=== PATIENT | female | born 1950 | race Caucasian/White ===

== ENCOUNTER 2023-02-26 13:15 | Outpatient (RCR) | payer MEDICARE, OTHER, SELFPAY ==
--- NOTE | 2022-12-22 16:38 | PT.OIE ---
Current Diagnoses Rectocele (12/22/22) Visit Care Team Role Provider Type Other Providers Specialty: Address: Phone: Fax: Email: Rasheeda Segura MD Family Provider Physician Primary Care Provider Specialty: Family Practice Address: [address] [place] [address], [address], [place], [address] Email: Aiden Myers MD Attending Provider Non-Staff Referring Provider Specialty: TAPE WEAVER Address: [address] [place] [address], [address], [place], [address] Email: Physical Therapy Initial Evaluation PT-OP-A Visit Information Start: 12/15/22 18:47 Freq: Status: Active Protocol: Document 12/22/22 13:23 LRN (Rec: 12/22/22 15:01 LRN [id number]) Out-Patient Physical Therapy Visit Information Visit Information Visit Type Initial Evaluation Visit Start Time 13:23 Visit Stop Time 14:29 Total Visit Minutes 66 Visit Number 1 Evaluation Information Evaluation Date 12/22/22 Precautions Precautions PMH per pt and intake form: Bartholin Gland removed-scar tissue, ovariectomy, Skull fracture - age 2. PT-OP-B Current Condition Start: 12/15/22 18:47 Freq: Status: Active Protocol: Document 12/22/22 13:23 LRN (Rec: 12/22/22 15:01 LRN [id number]) Current Condition History of Current Condition Onset Date 3-4 yrs ago History of Current Condition Pt reports having 1981 had 4 deg perineal tear, with forceps used during first preganancey. 2nd chld was delivered standing up. 3-4 yrs ago started to feel a bulge in perineum and discovered herniated rectocele . Moved to [facility] 2.5 [address] Segura and was given options of care. Pt finally went in to get option because could feel prolapse with walking. Saw Dr Janet Myers and was given option of pessary, PT or surgery. She started PT with Lena Brady, PT and was given Kegel ex's, breathing, not lifting, body work, and education for 5 session. Pt choosing to continue therapy at due to other PT is not under her insurance. Pt wants to see what other kinds of therapy is available. Future Testing and Treatments Planned January 04, 2023 Teleconference with surgeon through Medicine, to schedule an appt to look at kidney, ureter, and bladder. Developmental History Developmental History Childbirths 1980, and 1982. Vaginal deliveries, 1st delivery 4th deg perineal tear , with forceps used. Cyst on ovary with 2nd child and 2 months after bifth had R ovarianectomy. Pt reports she was very active after having her children. Treatment Goals Patient/Caregiver Goals Pt wants to improve as much as she can through education and learning of what she can so she is can avoid surgery. Strengthen the PF muscles and alleviate the pressure on her herniated rectocele. Educated on a HEP. 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 Current Functional Impairments (Reported) Functional Limitations- Recreation/ Intermediate and advanced Hobbies Pilates 2x/week. Has grandchildren that she was lifting. New grandchild coming. Personal Factors Other Personal Factors That May Effect Pt lives on [place] and is Therapy/Recovery expecting a new grandchild end of Jun 2023. PT-OP-C Subjective Start: 12/15/22 18:47 Freq: Status: Active Protocol: Document 12/22/22 13:23 LRN (Rec: 12/22/22 15:01 LRN [id number]) Patient Questionnaires Pelvic Floor Distress Inventory Questionnaire (PFDI- SF20) Pelvic Floor Score Pt failed to return questionnaire back in. PT-OP-I Pelvic Floor Start: 12/15/22 18:47 Freq: Status: Active Protocol: Document 12/22/22 13:23 LRN (Rec: 12/22/22 15:01 LRN [id number]) Pelvic Floor Assessment Bowel Other Bowel Symptoms Flatulence. Pelvic Clock Pelvic Clock 12-3 Atrophy Pelvic Clock 3-6 Atrophy Pelvic Clock 6-9 Atrophy Pelvic Clock 9-12 Atrophy Prolapse Urethrocele Grade 2 Rectocele Grade 2 Prolapse Comments Uterine Prolapse, able to palpate end of uterus at 2nd knuckle depth. Perineal Descent Resting Absent Bearing Present Contraction Ability Voluntary Contraction Weak Manual Muscle Testing Left 0 Manual Muscle Testing Right 0 Manual Muscle Testing Anterior 1 Manual Muscle Testing Posterior 3 Muscle Endurance (Seconds) 6 Number of Quick Contractions In 10 1 Seconds Comments Pelvic Floor Comments Pt has mild redness at vaginal entry of PF clock 5-7. PT-OP-J Posture/Palpation/Skin Start: 12/15/22 18:47 Freq: Status: Active Protocol: Document 12/22/22 13:23 LRN (Rec: 12/22/22 15:01 LRN [id number]) Posture Evaluation Position Standing T-Spine Posture Neutral L-Spine Posture Neutral Shoulder Posture (L) Elevated Scapula Posture (L) Neutral,(R) Neutral,(L) Winged,(R) Winged Arm Posture (L) Internally Rotated,(R) Internally Rotated Pelvis Posture Anteriorly Tilted,(R) Iliac Crest Superior Comments Posture Comments Mild anterior tilt of pelvis. Mild>moderate C-curve of upper thoracic spine with apex on the Left. PT-OP-K Range of Motion Start: 12/15/22 18:47 Freq: Status: Active Protocol: Document 12/22/22 13:23 LRN (Rec: 12/22/22 15:01 LRN [id number]) Lumbar Spine Range of Motion Lumbar Spine Active Degrees Testing Position Standing Flexion 10 Extension 15 Rotation Left 45 Rotation Right 40 Lateral Flexion Left 5 Lateral Flexion Right 10 Comments Flexion is 100 deg?s with 90 deg?s hip flexion, Trunk extension is 15 deg?s with 10 deg?s hip extension. Hip Goniometric Range of Motion Hip Right Passive Testing Position Supine Internal Rotation 35 External Rotation 60 Left Passive Testing Position Supine Internal Rotation 40 External Rotation 55 PT-OP-M Strength Start: 12/15/22 18:47 Freq: Status: Active Protocol: Document 12/22/22 13:23 LRN (Rec: 12/22/22 15:01 LRN [id number]) Trunk Strength Trunk Manual Muscle Testing Core Stabilization Pt shows good core stability with all LE movements. Hip Strength Hip Manual Muscle Testing Right Comments Generally 5/5 except as indeicated above Left External Rotation 3 Fair Comments Generally 5/5 except as indeicated above PT-OP-Q Treatments Start: 12/15/22 18:47 Freq: Status: Active Protocol: Document 12/22/22 13:23 LRN (Rec: 12/22/22 15:01 LRN [id number]) Therapeutic Exercises Supine Exercises PF Long Holds Supine Exercise Name PF Long holds Reps/Minutes 3' PF Quick Flicks Supine Exercise Name PF Quick Flicks Reps/Minutes 3' Self-Care/Home Management Treatment Education Patient Education Home Exercise Program Other Education Discussed results of evaluation, and discussed goals and prior therapy treaments, and plan of care ( POC). Pt agreeable to goals and POC. Pt educated in use of Bladder Diary and I/S in tracking for 1 week. Discussed use of 2 different diaries for tracking of bladder. Discussed previous ex's to include Kegels and putting yoga wedge between legs to correct flexion at hips and to improve prolapse positioning. Activities Self-Care/Home Management Activities I/S and reviewed Issued & reviewed HEP: Kegel ex's and discussed exercise of Quick Flicks, Long Holds and Aggravators. PT-OP-T Assessment and Plan Start: 12/15/22 18:47 Freq: Status: Active Protocol: Document 12/22/22 13:23 LRN (Rec: 12/22/22 15:01 LRN [id number]) Physical Therapy Assessment Rehab Potential Rehabilitation Potential Good Evaluation Complexity Number of Personal Factors/Comorbidities 1-2 Number of Body Systems Impaired 3 Clinical Presentation at Evaluation Evolving Impairments Impairments Posture,ROM,Strength Goals Three Impairment Pt uses substitute muscles to perform a PF contraction Short Term Goal (STG) Pt will be aware of the sensation of a proper PF contraction STG Duration 02/05/23 Senior Care Goal (LTG) Pt will be able to perform a PF contraction in isolation of substitute muscles (gluteals, hip AD's and TA). LTG Duration 03/22/23 Two Impairment Decreased Pelvic Floor/TA strength. Short Term Goal (STG) Pt will demonstrate proper core pressure management with PF/TA strengthening. STG Duration 02/05/23 Senior Care Goal (LTG) Improve PF strength so that pt can contract the PF for 10 secs prior to fatigue and be able to avoid PF surgery. LTG Duration 03/22/23 One Impairment Lacks appropriates self care HEP. Short Term Goal (STG) Pt educated in proper transfers to lessen core abdominal pressure. STG Duration 02/05/23 Manager Document Goal (LTG) Pt will be independent in a self care HEP for PF strengthening. LTG Duration 03/22/23 Assessment Summary Assessment Pt is a 72 yo female with grade 2 rectocele and uterocele grade 2, and appears to have a drop in her uterus with palpation at 2nd knuckle depth. She has weakness of her PF, worse anteriorly and lateral méndez. She has good core strength, but weakness of the L hip with ER, her hip ER mobility is decreased (L worse than R) and IR is R worse than L. She appears to have had good pt education in proper breathwork and coordination with daily activities and exercise, but review will be needed. The pt will benefit from skilled physical therapy for EMG biofeedback PF strengthening and PF contraction awareness education/exercise and PF strengthening to work towards achieving the above stated goals. Physical Therapy Plan Frequency and Duration Frequency of Treatment 1x/Week Plan of Care Start Date 12/22/22 Plan of Care End Date 03/22/23 Therapeutic Interventions Therapeutic Interventions Home Exercise Program,Manual Therapy,Neuromuscular Re- education,Patient/Caregiver Education,Self-Care/Home Management,Soft Tissue Mobilization,Therapeutic Activities,Therapeutic Exercises Modalities Biofeedback,Cold Pack/Ice Massage,Electric Stimulation, Hot Packs Next Visit Focus/Plan Next Note Type Treatment Note Next Visit Plan Pt to submit PFDI-SF20. Review bladder diary and discuss fluid management, discuss stool types, food types, and water intake, assess rectocele (PF section). PF assessment per VEMG, Estim for PF contraction awareness training. Pt education and training in proper Kegel without use of substitute muscles. Pt education: in vulvar/ genital care, proper deep breathing, and proper breathing with transfer for proper core pressure management, and body mechanics . EX: PF/core/hip strengthening , improve hip mobility, Manual: improve abdominal soft tissue (bladder) mobility .
--- NOTE | 2022-12-22 16:38 | PT.OPPOC ---
Physical, Occupational & Speech Therapy At [facility] Current Diagnoses Rectocele (12/22/22) Visit Care Team Role Provider Type Other Providers Specialty: Address: Phone: Fax: Email: Rasheeda Segura MD Family Provider Physician Primary Care Provider Specialty: Family Practice Address: [address] [place] [address], [address], [address] Email: Aiden Myers MD Attending Provider Non-Staff Referring Provider Specialty: PAPER SALES MANAGER Address: [address] [place] [address], [address], [place], [address] Email: Plan Of Care PT-OP-T Assessment and Plan Start: 12/15/22 18:47 Freq: Status: Active Protocol: Document 12/22/22 13:23 LRN (Rec: 12/22/22 15:01 LRN [id number]) Physical Therapy Assessment Rehab Potential Rehabilitation Potential Good Evaluation Complexity Number of Personal Factors/Comorbidities 1-2 Number of Body Systems Impaired 3 Clinical Presentation at Evaluation Evolving Impairments Impairments Posture,ROM,Strength Goals Three Impairment Pt uses substitute muscles to perform a PF contraction Short Term Goal (STG) Pt will be aware of the sensation of a proper PF contraction STG Duration 02/05/23 Chainstitch Tunnel Elastic Operator Goal (LTG) Pt will be able to perform a PF contraction in isolation of substitute muscles (gluteals, hip AD's and TA). LTG Duration 03/22/23 Two Impairment Decreased Pelvic Floor/TA strength. Short Term Goal (STG) Pt will demonstrate proper core pressure management with PF/TA strengthening. STG Duration 02/05/23 Chainstitch Tunnel Elastic Operator Goal (LTG) Improve PF strength so that pt can contract the PF for 10 secs prior to fatigue and be able to avoid PF surgery. LTG Duration 03/22/23 One Impairment Lacks appropriates self care HEP. Short Term Goal (STG) Pt educated in proper transfers to lessen core abdominal pressure. STG Duration 02/05/23 Chainstitch Tunnel Elastic Operator Goal (LTG) Pt will be independent in a self care HEP for PF strengthening. LTG Duration 03/22/23 Assessment Summary Assessment Pt is a 72 yo female with grade 2 rectocele and uterocele grade 2, and appears to have a drop in her uterus with palpation at 2nd knuckle depth. She has weakness of her PF, worse anteriorly and lateral méndez. She has good core strength, but weakness of the L hip with ER, her hip ER mobility is decreased (L worse than R) and IR is R worse than L. She appears to have had good pt education in proper breathwork and coordination with daily activities and exercise, but review will be needed. The pt will benefit from skilled physical therapy for EMG biofeedback PF strengthening and PF contraction awareness education/exercise and PF strengthening to work towards achieving the above stated goals. Physical Therapy Plan Frequency and Duration Frequency of Treatment 1x/Week Plan of Care Start Date 12/22/22 Plan of Care End Date 03/22/23 Therapeutic Interventions Therapeutic Interventions Home Exercise Program,Manual Therapy,Neuromuscular Re- education,Patient/Caregiver Education,Self-Care/Home Management,Soft Tissue Mobilization,Therapeutic Activities,Therapeutic Exercises Modalities Biofeedback,Cold Pack/Ice Massage,Electric Stimulation, Hot Packs Next Visit Focus/Plan Next Note Type Treatment Note Next Visit Plan Pt to submit PFDI-SF20. Review bladder diary and discuss fluid management, discuss stool types, food types, and water intake, assess rectocele (PF section). PF assessment per VEMG, Estim for PF contraction awareness training. Pt education and training in proper Kegel without use of substitute muscles. Pt education: in vulvar/ genital care, proper deep breathing, and proper breathing with transfer for proper core pressure management, and body mechanics . EX: PF/core/hip strengthening , improve hip mobility, Manual: improve abdominal soft tissue (bladder) mobility . Plan of Care Dates Plan of Care Start Date 12/22/22 Plan of Care End Date 03/22/23 Electronically Signed by: Marsha Ortiz, PT 12/22/22 5558 If you are in agreement with this Plan of Care, please return a signed and dated copy. I have reviewed this Plan of Care and certify that the skilled therapy services above are required to meet the patient?s needs. Physician Signature Date Printed Name and Credentials Clinical Instructor Signature Printed Name and Credentials
--- NOTE | 2022-12-29 17:26 | PT.OTN ---
Current Diagnoses Rectocele (12/29/22) Physical Therapy Treatment Note PT-OP-A Visit Information Start: 12/15/22 18:47 Freq: Status: Active Protocol: Document 12/29/22 11:21 LRN (Rec: 12/29/22 12:09 LRN [id number]) Out-Patient Physical Therapy Visit Information Visit Information Visit Type Treatment Note Visit Start Time 11:21 Visit Stop Time 12:01 Total Visit Minutes 40 Visit Number 2 Evaluation Information Evaluation Date 12/22/22 Precautions Precautions PMH per pt and intake form: Bartholin Gland removed-scar tissue, ovariectomy, Skull fracture - age 2. PT-OP-B Current Condition Start: 12/15/22 18:47 Freq: Status: Active Protocol: Document 12/22/22 13:23 LRN (Rec: 12/22/22 15:01 LRN [id number]) Current Condition History of Current Condition Onset Date 3-4 yrs ago History of Current Condition Pt reports having 1981 had 4 deg perineal tear, with forceps used during first preganancey. 2nd chld was delivered standing up. 3-4 yrs ago started to feel a bulge in perineum and discovered herniated rectocele . Moved to [facility] 2.[address] Segura and was given options of care. Pt finally went in to get option because could feel prolapse with walking. Saw Dr Janet Myers and was given option of pessary, PT or surgery. She started PT with Lena Brady, PT and was given Kegel ex's, breathing, not lifting, body work, and education for 5 session. Pt choosing to continue therapy at due to other PT is not under her insurance. Pt wants to see what other kinds of therapy is available. Future Testing and Treatments Planned January 04, 2023 Teleconference with surgeon through Medicine, to schedule an appt to look at kidney, ureter, and bladder. Developmental History Developmental History Childbirths 1980, and 1982. Vaginal deliveries, 1st delivery 4th deg perineal tear , with forceps used. Cyst on ovary with 2nd child and 2 months after bifth had R ovarianectomy. Pt reports she was very active after having her children. Treatment Goals Patient/Caregiver Goals Pt wants to improve as much as she can through education and learning of what she can so she is can avoid surgery. Strengthen the PF muscles and alleviate the pressure on her herniated rectocele. Educated on a HEP. 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 Current Functional Impairments (Reported) Functional Limitations- Recreation/ Intermediate and advanced Hobbies Pilates 2x/week. Has grandchildren that she was lifting. New grandchild coming. Personal Factors Other Personal Factors That May Effect Pt lives on [place] and is Therapy/Recovery expecting a new grandchild end of Jun 2023. PT-OP-C Subjective Start: 12/15/22 18:47 Freq: Status: Active Protocol: Document 12/29/22 11:21 LRN (Rec: 12/29/22 12:09 LRN [id number]) OP-PT Subjective Patient Comments Patient Comments Weight ~125#. Gave up dicyclomine that was given for IBS and using a fiber to help w/elimination for bowels. States the doctor who prescribed it she hasn't see for 4 yrs. Current doctor was vague. Patient Questionnaires Pelvic Pain and Urgency/Frequency Patient Symptom Scale Pelvic Pain Score 8 PT-OP-I Pelvic Floor Start: 12/15/22 18:47 Freq: Status: Active Protocol: Document 12/22/22 13:23 LRN (Rec: 12/22/22 15:01 LRN [id number]) Pelvic Floor Assessment Bowel Other Bowel Symptoms Flatulence. Pelvic Clock Pelvic Clock 12-3 Atrophy Pelvic Clock 3-6 Atrophy Pelvic Clock 6-9 Atrophy Pelvic Clock 9-12 Atrophy Prolapse Urethrocele Grade 2 Rectocele Grade 2 Prolapse Comments Uterine Prolapse, able to palpate end of uterus at 2nd knuckle depth. Perineal Descent Resting Absent Bearing Present Contraction Ability Voluntary Contraction Weak Manual Muscle Testing Left 0 Manual Muscle Testing Right 0 Manual Muscle Testing Anterior 1 Manual Muscle Testing Posterior 3 Muscle Endurance (Seconds) 6 Number of Quick Contractions In 10 1 Seconds Comments Pelvic Floor Comments Pt has mild redness at vaginal entry of PF clock 5-7. PT-OP-J Posture/Palpation/Skin Start: 12/15/22 18:47 Freq: Status: Active Protocol: Document 12/22/22 13:23 LRN (Rec: 12/22/22 15:01 LRN [id number]) Posture Evaluation Position Standing T-Spine Posture Neutral L-Spine Posture Neutral Shoulder Posture (L) Elevated Scapula Posture (L) Neutral,(R) Neutral,(L) Winged,(R) Winged Arm Posture (L) Internally Rotated,(R) Internally Rotated Pelvis Posture Anteriorly Tilted,(R) Iliac Crest Superior Comments Posture Comments Mild anterior tilt of pelvis. Mild>moderate C-curve of upper thoracic spine with apex on the Left. PT-OP-K Range of Motion Start: 12/15/22 18:47 Freq: Status: Active Protocol: Document 12/22/22 13:23 LRN (Rec: 12/22/22 15:01 LRN [id number]) Lumbar Spine Range of Motion Lumbar Spine Active Degrees Testing Position Standing Flexion 10 Extension 15 Rotation Left 45 Rotation Right 40 Lateral Flexion Left 5 Lateral Flexion Right 10 Comments Flexion is 100 deg?s with 90 deg?s hip flexion, Trunk extension is 15 deg?s with 10 deg?s hip extension. Hip Goniometric Range of Motion Hip Right Passive Testing Position Supine Internal Rotation 35 External Rotation 60 Left Passive Testing Position Supine Internal Rotation 40 External Rotation 55 PT-OP-M Strength Start: 12/15/22 18:47 Freq: Status: Active Protocol: Document 12/22/22 13:23 LRN (Rec: 12/22/22 15:01 LRN [id number]) Trunk Strength Trunk Manual Muscle Testing Core Stabilization Pt shows good core stability with all LE movements. Hip Strength Hip Manual Muscle Testing Right Comments Generally 5/5 except as indeicated above Left External Rotation 3 Fair Comments Generally 5/5 except as indeicated above PT-OP-Q Treatments Start: 12/15/22 18:47 Freq: Status: Active Protocol: Document 12/29/22 11:21 LRN (Rec: 12/29/22 12:09 LRN [id number]) Therapeutic Exercises Supine Exercises Bowel Massage Supine Exercise Name Pt education and training in self care bowel massage and ILU massage. Reps/Minutes 10' PF/BKFO Supine Exercise Name PF/BKFO Side bilateral Reps/Minutes 5' PF/Dennis Hip AD Supine Exercise Name PF/Dennis Hip AD Side bilateral Reps/Minutes 5' Manual Therapy Treatment Soft Tissue Mobilization Bowel massage Body Location Bowel massage Intensity/Depth Moderate Body Position Supine Self-Care/Home Management Treatment Education Patient Education Home Exercise Program Other Education Reviewed bladder diary and discussed fluid management, discussed stool types, food types, recommended increase in greens and encouraged pt to discuss use of fiber with removal of medication from diet, and water intake. Discussed w/pt Urinary frequency PT program in the future. Encouraged pt to continues with food/drink diary. Activities Self-Care/Home Management Activities I/S pt in HEP: PF contractions with dennis hip AD and BKFO w/Lev2 TB resistance. Issued Lev 2 TB. Issued & reviewed HEP: Bowel management, incuding bowel massage. PT-OP-T Assessment and Plan Start: 12/15/22 18:47 Freq: Status: Active Protocol: Document 12/29/22 11:21 LRN (Rec: 12/29/22 12:09 LRN [id number]) Physical Therapy Assessment Goals Three Impairment Pt uses substitute muscles to perform a PF contraction Short Term Goal (STG) Pt will be aware of the sensation of a proper PF contraction STG Duration 02/05/23 Independent Sales Representative Goal (LTG) Pt will be able to perform a PF contraction in isolation of substitute muscles (gluteals, hip AD's and TA). LTG Duration 03/22/23 Two Impairment Decreased Pelvic Floor/TA strength. Short Term Goal (STG) Pt will demonstrate proper core pressure management with PF/TA strengthening. STG Duration 02/05/23 Independent Sales Representative Goal (LTG) Improve PF strength so that pt can contract the PF for 10 secs prior to fatigue and be able to avoid PF surgery. LTG Duration 03/22/23 One Impairment Lacks appropriates self care HEP. Short Term Goal (STG) Pt educated in proper transfers to lessen core abdominal pressure. STG Duration 02/05/23 Independent Sales Representative Goal (LTG) Pt will be independent in a self care HEP for PF strengthening. HEP: I/S in PF contraction with Ball Squeeze & BKFO agst TBand (lev2) LTG Duration 03/22/23 progressed 12/29/22 Assessment Summary Assessment Pt with grade 2 rectocele and uterocele grade 2, and appears to have a drop in her uterus with palpation at 2nd knuckle depth. Pt receptive to education diet recommendations to increase vegetables and fruit into diet and to continue with water intake. Pt concerned with getting maximal education/therapy with each visit as she comes from the [place]; therefore pt will need to have more ex at home to do. Physical Therapy Plan Frequency and Duration Frequency of Treatment 1x/Week Plan of Care Start Date 12/22/22 Plan of Care End Date 03/22/23 Next Visit Focus/Plan Next Note Type Treatment Note Next Visit Plan Assess rectocele (PF section). PF assessment per VEMG, Estim for PF contraction awareness training. Pt education and training in proper Kegel without use of substitute muscles. Pt education: in vulvar/ genital care, proper deep breathing, and proper breathing with transfer for proper core pressure management, and body mechanics . EX: PF/core/hip strengthening , improve hip mobility, Manual: improve abdominal soft tissue (bladder) mobility .
--- NOTE | 2023-01-11 15:42 | PT.OTN ---
Current Diagnoses Rectocele (01/11/23) Physical Therapy Treatment Note PT-OP-A Visit Information Start: 12/15/22 18:47 Freq: Status: Active Protocol: Document 01/11/23 12:32 LRN (Rec: 01/11/23 15:39 LRN [id number]) Out-Patient Physical Therapy Visit Information Visit Information Visit Type Treatment Note Visit Start Time 12:32 Visit Stop Time 13:20 Total Visit Minutes 50 Visit Number 09/13 Evaluation Information Evaluation Date 12/22/22 Precautions Precautions PMH per pt and intake form: Bartholin Gland removed-scar tissue, ovariectomy, Skull fracture - age 2. PT-OP-B Current Condition Start: 12/15/22 18:47 Freq: Status: Active Protocol: Document 12/22/22 13:23 LRN (Rec: 12/22/22 15:01 LRN [id number]) Current Condition History of Current Condition Onset Date 3-4 yrs ago History of Current Condition Pt reports having 1981 had 4 deg perineal tear, with forceps used during first preganancey. 2nd chld was delivered standing up. 3-4 yrs ago started to feel a bulge in perineum and discovered herniated rectocele . Moved to [facility] 2.[address] Segura and was given options of care. Pt finally went in to get option because could feel prolapse with walking. Saw Dr Janet Myers and was given option of pessary, PT or surgery. She started PT with Lena Brady, PT and was given Kegel ex's, breathing, not lifting, body work, and education for 5 session. Pt choosing to continue therapy at due to other PT is not under her insurance. Pt wants to see what other kinds of therapy is available. Future Testing and Treatments Planned January 04, 2023 Teleconference with surgeon through Medicine, to schedule an appt to look at kidney, ureter, and bladder. Developmental History Developmental History Childbirths 1980, and 1982. Vaginal deliveries, 1st delivery 4th deg perineal tear , with forceps used. Cyst on ovary with 2nd child and 2 months after bifth had R ovarianectomy. Pt reports she was very active after having her children. Treatment Goals Patient/Caregiver Goals Pt wants to improve as much as she can through education and learning of what she can so she is can avoid surgery. Strengthen the PF muscles and alleviate the pressure on her herniated rectocele. Educated on a HEP. 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 Current Functional Impairments (Reported) Functional Limitations- Recreation/ Intermediate and advanced Hobbies Pilates 2x/week. Has grandchildren that she was lifting. New grandchild coming. Personal Factors Other Personal Factors That May Effect Pt lives on [place] and is Therapy/Recovery expecting a new grandchild end of Jun 2023. PT-OP-C Subjective Start: 12/15/22 18:47 Freq: Status: Active Protocol: Document 01/11/23 12:32 LRN (Rec: 01/11/23 15:39 LRN [id number]) OP-PT Subjective Patient Comments Patient Comments Improvement. Doesn't have the pressure out of the body and thinks its due to bowel and diet. Now has longer, more volume of urination. Doing ex 's faithfully. Encouraged when walk and go somewhere. Usually protrusion is at night and not all the time. Changed diet. 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 PT-OP-I Pelvic Floor Start: 12/15/22 18:47 Freq: Status: Active Protocol: Document 01/11/23 12:32 LRN (Rec: 01/11/23 15:39 LRN [id number]) Pelvic Floor Assessment Pelvic Clock Pelvic Clock 12-3 Atrophy Pelvic Clock 3-6 Atrophy Pelvic Clock 6-9 Atrophy Pelvic Clock 9-12 Atrophy Prolapse Urethrocele Grade 2 Rectocele Grade 2 Prolapse Comments Uterine Prolapse, able to palpate end of uterus at 2nd knuckle depth. SEMG (uV) Baseline 1.3 Quick Contraction 4.6 10 Second Contraction 4.2 Recruitment Pattern Good Relaxation Good Holding Poor/Slow Stability of Hold Poor/Slow SEMG Stability of Rest Good Contraction Ability Manual Muscle Testing Left 1 Manual Muscle Testing Right 1 Manual Muscle Testing Anterior 1 Manual Muscle Testing Posterior 0 Muscle Endurance (Seconds) 3 PT-OP-J Posture/Palpation/Skin Start: 12/15/22 18:47 Freq: Status: Active Protocol: Document 12/22/22 13:23 LRN (Rec: 12/22/22 15:01 LRN [id number]) Posture Evaluation Position Standing T-Spine Posture Neutral L-Spine Posture Neutral Shoulder Posture (L) Elevated Scapula Posture (L) Neutral,(R) Neutral,(L) Winged,(R) Winged Arm Posture (L) Internally Rotated,(R) Internally Rotated Pelvis Posture Anteriorly Tilted,(R) Iliac Crest Superior Comments Posture Comments Mild anterior tilt of pelvis. Mild>moderate C-curve of upper thoracic spine with apex on the Left. PT-OP-K Range of Motion Start: 12/15/22 18:47 Freq: Status: Active Protocol: Document 12/22/22 13:23 LRN (Rec: 12/22/22 15:01 LRN [id number]) Lumbar Spine Range of Motion Lumbar Spine Active Degrees Testing Position Standing Flexion 10 Extension 15 Rotation Left 45 Rotation Right 40 Lateral Flexion Left 5 Lateral Flexion Right 10 Comments Flexion is 100 deg?s with 90 deg?s hip flexion, Trunk extension is 15 deg?s with 10 deg?s hip extension. Hip Goniometric Range of Motion Hip Right Passive Testing Position Supine Internal Rotation 35 External Rotation 60 Left Passive Testing Position Supine Internal Rotation 40 External Rotation 55 PT-OP-M Strength Start: 12/15/22 18:47 Freq: Status: Active Protocol: Document 12/22/22 13:23 LRN (Rec: 12/22/22 15:01 LRN [id number]) Trunk Strength Trunk Manual Muscle Testing Core Stabilization Pt shows good core stability with all LE movements. Hip Strength Hip Manual Muscle Testing Right Comments Generally 5/5 except as indeicated above Left External Rotation 3 Fair Comments Generally 5/5 except as indeicated above PT-OP-Q Treatments Start: 12/15/22 18:47 Freq: Status: Active Protocol: Document 01/11/23 12:32 LRN (Rec: 01/11/23 15:39 LRN [id number]) Therapeutic Exercises Supine Exercises PF isolated contractions Supine Exercise Name PF Isolated contraction training Reps/Minutes Long holds Comments V cuing w/contraction & Self phys cuing with relaxation phase. PF/Bridge Supine Exercise Name PF/Bridge Reps/Minutes 10x Comments Posterior PF contraction felt PF/Glut Squeezes Supine Exercise Name PF/Glut Squeezes Reps/Minutes 10x Comments No Posterior PF contraction felt PF strengthening with VEMG Supine Exercise Name PF strengthening with Vag electrode - long and quick holds Reps/Minutes 20' Comments Baseline, Quick and Long hold contractions PF Long Holds Supine Exercise Name PF Long holds with double rest times Reps/Minutes 13' PF Quick Flicks Supine Exercise Name PF Quick Flicks with double rest times (breath) Reps/Minutes 5' PT-OP-T Assessment and Plan Start: 12/15/22 18:47 Freq: Status: Active Protocol: Document 01/11/23 12:32 LRN (Rec: 01/11/23 15:39 LRN [id number]) Physical Therapy Assessment Goals Three Impairment Pt uses substitute muscles to perform a PF contraction Short Term Goal (STG) Pt will be aware of the sensation of a proper PF contraction STG Duration 02/05/23 Mcc Goal (LTG) Pt will be able to perform a PF contraction in isolation of substitute muscles (gluteals, hip AD's and TA). 01/11/23: Educated pt in PF contraction in isolation with self assessment of self phys cuing (hands on abdominals/ gluts). LTG Duration 03/22/23 progressed 01/11/23 (training given) Two Impairment Decreased Pelvic Floor/TA strength. Short Term Goal (STG) Pt will demonstrate proper core pressure management with PF/TA strengthening. STG Duration 02/05/23 Heat Plant Specialist Goal (LTG) Improve PF strength so that pt can contract the PF for 10 secs prior to fatigue and be able to avoid PF surgery. LTG Duration 03/22/23 One Impairment Lacks appropriates self care HEP. Short Term Goal (STG) Pt educated in proper transfers to lessen core abdominal pressure. STG Duration 02/05/23 Mcc Goal (LTG) Pt will be independent in a self care HEP for PF strengthening. HEP: I/S in PF contraction with Ball Squeeze & BKFO agst TBand (lev2) LTG Duration 03/22/23 progressed 12/29/22 Assessment Summary Assessment + response to change in diet and fluid intake, pressure and feeling of drop in PF is less . Grade 2 rectocele and posterior PF weakness with quick and long hold contractions. Posterior PF contraction was not felt at 6 of PF clock unless accompanied by bridging exercise. Glut squeeze did not elicit a posterior PF contraction. Resting tone is good and low. PF resting tone is low at 1.3 uV's. Avg Quick contraction strength is fair at 4.6 uVs, resting is 1.3 uV's (10 reps), Long Hold strength is 4.2 uV' s, resting is 1.4 uV's (10 reps). Physical Therapy Plan Frequency and Duration Frequency of Treatment 1x/Week Plan of Care Start Date 12/22/22 Plan of Care End Date 03/22/23 Next Visit Focus/Plan Next Note Type Treatment Note Next Visit Plan Estim for PF contraction awareness training. Review proper Kegel without use of substitute muscles. Pt education: in vulvar/ genital care, proper deep breathing, and proper breathing with transfer for proper core pressure management, and body mechanics . EX: PF/core/hip strengthening , improve hip mobility, Manual: improve abdominal soft tissue (bladder) mobility .
--- NOTE | 2023-01-22 17:49 | PT.OTN ---
Current Diagnoses Rectocele (01/22/23) Physical Therapy Treatment Note PT-OP-A Visit Information Start: 12/15/22 18:47 Freq: Status: Active Protocol: Document 01/22/23 10:31 LRN (Rec: 01/22/23 11:19 LRN [id number]) Out-Patient Physical Therapy Visit Information Visit Information Visit Type Treatment Note Visit Start Time 10:31 Visit Stop Time 11:12 Total Visit Minutes 41 Visit Number 10/14 Evaluation Information Evaluation Date 12/22/22 Precautions Precautions PMH per pt and intake form: Bartholin Gland removed-scar tissue, ovariectomy, Skull fracture - age 2. PT-OP-B Current Condition Start: 12/15/22 18:47 Freq: Status: Active Protocol: Document 12/22/22 13:23 LRN (Rec: 12/22/22 15:01 LRN [id number]) Current Condition History of Current Condition Onset Date 3-4 yrs ago History of Current Condition Pt reports having 1981 had 4 deg perineal tear, with forceps used during first preganancey. 2nd chld was delivered standing up. 3-4 yrs ago started to feel a bulge in perineum and discovered herniated rectocele . Moved to [facility] 2.5 [address] Dr[address] Segura and was given options of care. Pt finally went in to get option because could feel prolapse with walking. Saw Dr Janet Myers and was given option of pessary, PT or surgery. She started PT with Lena Brady, PT and was given Kegel ex's, breathing, not lifting, body work, and education for 5 session. Pt choosing to continue therapy at due to other PT is not under her insurance. Pt wants to see what other kinds of therapy is available. Future Testing and Treatments Planned January 04, 2023 Teleconference with surgeon through Medicine, to schedule an appt to look at kidney, ureter, and bladder. Developmental History Developmental History Childbirths 1980, and 1982. Vaginal deliveries, 1st delivery 4th deg perineal tear , with forceps used. Cyst on ovary with 2nd child and 2 months after bifth had R ovarianectomy. Pt reports she was very active after having her children. Treatment Goals Patient/Caregiver Goals Pt wants to improve as much as she can through education and learning of what she can so she is can avoid surgery. Strengthen the PF muscles and alleviate the pressure on her herniated rectocele. Educated on a HEP. 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 Current Functional Impairments (Reported) Functional Limitations- Recreation/ Intermediate and advanced Hobbies Pilates 2x/week. Has grandchildren that she was lifting. New grandchild coming. Personal Factors Other Personal Factors That May Effect Pt lives on [place] and is Therapy/Recovery expecting a new grandchild end of Jun 2023. PT-OP-C Subjective Start: 12/15/22 18:47 Freq: Status: Active Protocol: Document 01/22/23 10:31 LRN (Rec: 01/22/23 11:19 LRN [id number]) OP-PT Subjective Patient Comments Patient Comments Had nuclear imaging and was told kidney looks good and no obstruction of the bladder Saw generous kidney pelvis on the left. Still looking to see if someting congenital with ureter. STates peeing is so much better now that mohamud prolapse of hernia is not bulging and has found exs help and improved bowel is better. c/o stiff neck that chiropractor states it is due to scoliosis and twisting of spine. Not feeling prolapse like it was, not pushing out. Able to lift grandson without feeling the bulge as often. PT-OP-I Pelvic Floor Start: 12/15/22 18:47 Freq: Status: Active Protocol: Document 01/11/23 12:32 LRN (Rec: 01/11/23 15:39 LRN [id number]) Pelvic Floor Assessment Pelvic Clock Pelvic Clock 12-3 Atrophy Pelvic Clock 3-6 Atrophy Pelvic Clock 6-9 Atrophy Pelvic Clock 9-12 Atrophy Prolapse Urethrocele Grade 2 Rectocele Grade 2 Prolapse Comments Uterine Prolapse, able to palpate end of uterus at 2nd knuckle depth. SEMG (uV) Baseline 1.3 Quick Contraction 4.6 10 Second Contraction 4.2 Recruitment Pattern Good Relaxation Good Holding Poor/Slow Stability of Hold Poor/Slow SEMG Stability of Rest Good Contraction Ability Manual Muscle Testing Left 1 Manual Muscle Testing Right 1 Manual Muscle Testing Anterior 1 Manual Muscle Testing Posterior 0 Muscle Endurance (Seconds) 3 PT-OP-J Posture/Palpation/Skin Start: 12/15/22 18:47 Freq: Status: Active Protocol: Document 12/22/22 13:23 LRN (Rec: 12/22/22 15:01 LRN [id number]) Posture Evaluation Position Standing T-Spine Posture Neutral L-Spine Posture Neutral Shoulder Posture (L) Elevated Scapula Posture (L) Neutral,(R) Neutral,(L) Winged,(R) Winged Arm Posture (L) Internally Rotated,(R) Internally Rotated Pelvis Posture Anteriorly Tilted,(R) Iliac Crest Superior Comments Posture Comments Mild anterior tilt of pelvis. Mild>moderate C-curve of upper thoracic spine with apex on the Left. PT-OP-K Range of Motion Start: 12/15/22 18:47 Freq: Status: Active Protocol: Document 12/22/22 13:23 LRN (Rec: 12/22/22 15:01 LRN [id number]) Lumbar Spine Range of Motion Lumbar Spine Active Degrees Testing Position Standing Flexion 10 Extension 15 Rotation Left 45 Rotation Right 40 Lateral Flexion Left 5 Lateral Flexion Right 10 Comments Flexion is 100 deg?s with 90 deg?s hip flexion, Trunk extension is 15 deg?s with 10 deg?s hip extension. Hip Goniometric Range of Motion Hip Right Passive Testing Position Supine Internal Rotation 35 External Rotation 60 Left Passive Testing Position Supine Internal Rotation 40 External Rotation 55 PT-OP-M Strength Start: 12/15/22 18:47 Freq: Status: Active Protocol: Document 12/22/22 13:23 LRN (Rec: 12/22/22 15:01 LRN [id number]) Trunk Strength Trunk Manual Muscle Testing Core Stabilization Pt shows good core stability with all LE movements. Hip Strength Hip Manual Muscle Testing Right Comments Generally 5/5 except as indeicated above Left External Rotation 3 Fair Comments Generally 5/5 except as indeicated above PT-OP-Q Treatments Start: 12/15/22 18:47 Freq: Status: Active Protocol: Document 01/22/23 10:31 LRN (Rec: 01/22/23 11:19 LRN [id number]) Therapeutic Exercises Supine Exercises PF isolated contractions Supine Exercise Name PF Isolated contraction training Reps/Minutes 10x Long holds & Quick Contractions with double rest time after contraction Comments MUCH Phys & V cuing w/ contraction & relaxation awareness. PF/Bridge Supine Exercise Name PF/Glut Squeezes Reps/Minutes 10x long holds (3 breaths at top), and quick (1 hold) w/ double rest time Sitting Exercises Sit<>stand w/PF/breath Sitting Exercise Name Sit<>stand w/PF/breath Reps/Minutes 2x Comments v cuing needed. Sit<>supine w/PF/breath Sitting Exercise Name Sit<>supine w/PF ></breath coordination Reps/Minutes 2x Comments Phys & v cuing needed. Standing Exercises PF/body mechanics Standing Exercise Name PF >< w/functional movement ( pulling hose, lifting) Reps/Minutes 8' PF >< in Hamstring stretch position Standing Exercise Name PF contractions in Hamstring stretch position Reps/Minutes 5' Self-Care/Home Management Treatment Education Other Education Pt education & training (see ther ex): proper deep breathing, and proper breathing with transfer for proper core pressure management, and body mechanics . Activities Self-Care/Home Management Activities Handouts issued for vulvar/ genital care and HEP: PF contraction using gravity in standing for PF contractions ( standing hamstring stretch position). PT-OP-T Assessment and Plan Start: 12/15/22 18:47 Freq: Status: Active Protocol: Document 01/22/23 10:31 LRN (Rec: 01/22/23 11:19 LRN [id number]) Physical Therapy Assessment Goals Three Impairment Pt uses substitute muscles to perform a PF contraction Short Term Goal (STG) Pt will be aware of the sensation of a proper PF contraction STG Duration 02/05/23 Half-Way Goal (LTG) Pt will be able to perform a PF contraction in isolation of substitute muscles (gluteals, hip AD's and TA). 01/11/23: Educated pt in PF contraction in isolation with self assessment of self phys cuing (hands on abdominals/ gluts). 01/22/23: Pt able to perform PF contraction in isolation of substitute ms if she does without concentrating on breathing, but does counting of hold time. LTG Duration 03/22/23 (01/22/23 MET GOAL ) Two Impairment Decreased Pelvic Floor/TA strength. Short Term Goal (STG) Pt will demonstrate proper core pressure management with PF/TA strengthening. STG Duration 02/05/23 Half-Way Goal (LTG) Improve PF strength so that pt can contract the PF for 10 secs prior to fatigue and be able to avoid PF surgery. LTG Duration 03/22/23 One Impairment Lacks appropriates self care HEP. Short Term Goal (STG) Pt educated in proper transfers to lessen core abdominal pressure. (01/22/23: MET GOAL) STG Duration 02/05/23 (01/22/23: MET GOAL) Sharebroker Goal (LTG) Pt will be independent in a self care HEP for PF strengthening. HEP: I/S in PF contraction with Ball Squeeze & BKFO agst TBand (lev2). 01/22/23: HEP: Standing PF contraction in standing forward bend Hamstring stretch position. LTG Duration 03/22/23 progressed 01/22/23 Progress Towards Goals Progress Comments LTG #3 met. Progressed HEP. Assessment Summary Assessment Pt forgot her Vag electrode; therefore not able to do EStim training. Pt with grade 2 rectocele and uterocele, and intial assessment of drop in her uterus with palpation at 2nd knuckle depth. Pt notes decreased symptoms of prolapse . Much time and awareness training needed, both Phys & V cuing for isolation of PF contractions, but pt finally able to understand how to isolate PF through counting hold time vs monitoring breathing during hold time. Pt receptive to education but needs further training on core pressure management. Physical Therapy Plan Frequency and Duration Frequency of Treatment 1x/Week Plan of Care Start Date 12/22/22 Plan of Care End Date 03/22/23 Next Visit Focus/Plan Next Note Type Treatment Note Next Visit Plan Estim for PF contraction awareness training. Review briefly Kegel without use of substitute muscles. Monitor/Review: breathing with transfer for proper core pressure management, and body mechanics. EX: PF/core/hip strengthening, improve hip mobility, Manual: improve abdominal soft tissue (bladder) mobility .
--- NOTE | 2023-01-29 17:10 | PT.OTN ---
Current Diagnoses Rectocele (01/29/23) Physical Therapy Treatment Note PT-OP-A Visit Information Start: 12/15/22 18:47 Freq: Status: Active Protocol: Document 01/29/23 13:26 LRN (Rec: 01/29/23 14:18 LRN [id number]) Out-Patient Physical Therapy Visit Information Visit Information Visit Type Treatment Note Visit Start Time 13:26 Visit Stop Time 14:14 Total Visit Minutes 38 Visit Number 11/13 Evaluation Information Evaluation Date 12/22/22 Precautions Precautions PMH per pt and intake form: Bartholin Gland removed-scar tissue, ovariectomy, Skull fracture - age 2. PT-OP-B Current Condition Start: 12/15/22 18:47 Freq: Status: Active Protocol: Document 12/22/22 13:23 LRN (Rec: 12/22/22 15:01 LRN [id number]) Current Condition History of Current Condition Onset Date 3-4 yrs ago History of Current Condition Pt reports having 1981 had 4 deg perineal tear, with forceps used during first preganancey. 2nd chld was delivered standing up. 3-4 yrs ago started to feel a bulge in perineum and discovered herniated rectocele . Moved to [facility] 2.[address] Segura and was given options of care. Pt finally went in to get option because could feel prolapse with walking. Saw Dr Janet Myers and was given option of pessary, PT or surgery. She started PT with Lena Brady, PT and was given Kegel ex's, breathing, not lifting, body work, and education for 5 session. Pt choosing to continue therapy at due to other PT is not under her insurance. Pt wants to see what other kinds of therapy is available. Future Testing and Treatments Planned January 04, 2023 Teleconference with surgeon through Medicine, to schedule an appt to look at kidney, ureter, and bladder. Developmental History Developmental History Childbirths 1980, and 1982. Vaginal deliveries, 1st delivery 4th deg perineal tear , with forceps used. Cyst on ovary with 2nd child and 2 months after bifth had R ovarianectomy. Pt reports she was very active after having her children. Treatment Goals Patient/Caregiver Goals Pt wants to improve as much as she can through education and learning of what she can so she is can avoid surgery. Strengthen the PF muscles and alleviate the pressure on her herniated rectocele. Educated on a HEP. 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 Current Functional Impairments (Reported) Functional Limitations- Recreation/ Intermediate and advanced Hobbies Pilates 2x/week. Has grandchildren that she was lifting. New grandchild coming. Personal Factors Other Personal Factors That May Effect Pt lives on [place] and is Therapy/Recovery expecting a new grandchild end of Jun 2023. PT-OP-C Subjective Start: 12/15/22 18:47 Freq: Status: Active Protocol: Document 01/29/23 13:26 LRN (Rec: 01/29/23 14:18 LRN [id number]) OP-PT Subjective Patient Comments Patient Reported Progress Same PT-OP-I Pelvic Floor Start: 12/15/22 18:47 Freq: Status: Active Protocol: Document 01/11/23 12:32 LRN (Rec: 01/11/23 15:39 LRN [id number]) Pelvic Floor Assessment Pelvic Clock Pelvic Clock 12-3 Atrophy Pelvic Clock 3-6 Atrophy Pelvic Clock 6-9 Atrophy Pelvic Clock 9-12 Atrophy Prolapse Urethrocele Grade 2 Rectocele Grade 2 Prolapse Comments Uterine Prolapse, able to palpate end of uterus at 2nd knuckle depth. SEMG (uV) Baseline 1.3 Quick Contraction 4.6 10 Second Contraction 4.2 Recruitment Pattern Good Relaxation Good Holding Poor/Slow Stability of Hold Poor/Slow SEMG Stability of Rest Good Contraction Ability Manual Muscle Testing Left 1 Manual Muscle Testing Right 1 Manual Muscle Testing Anterior 1 Manual Muscle Testing Posterior 0 Muscle Endurance (Seconds) 3 PT-OP-J Posture/Palpation/Skin Start: 12/15/22 18:47 Freq: Status: Active Protocol: Document 12/22/22 13:23 LRN (Rec: 12/22/22 15:01 LRN [id number]) Posture Evaluation Position Standing T-Spine Posture Neutral L-Spine Posture Neutral Shoulder Posture (L) Elevated Scapula Posture (L) Neutral,(R) Neutral,(L) Winged,(R) Winged Arm Posture (L) Internally Rotated,(R) Internally Rotated Pelvis Posture Anteriorly Tilted,(R) Iliac Crest Superior Comments Posture Comments Mild anterior tilt of pelvis. Mild>moderate C-curve of upper thoracic spine with apex on the Left. PT-OP-K Range of Motion Start: 12/15/22 18:47 Freq: Status: Active Protocol: Document 12/22/22 13:23 LRN (Rec: 12/22/22 15:01 LRN [id number]) Lumbar Spine Range of Motion Lumbar Spine Active Degrees Testing Position Standing Flexion 10 Extension 15 Rotation Left 45 Rotation Right 40 Lateral Flexion Left 5 Lateral Flexion Right 10 Comments Flexion is 100 deg?s with 90 deg?s hip flexion, Trunk extension is 15 deg?s with 10 deg?s hip extension. Hip Goniometric Range of Motion Hip Right Passive Testing Position Supine Internal Rotation 35 External Rotation 60 Left Passive Testing Position Supine Internal Rotation 40 External Rotation 55 PT-OP-M Strength Start: 12/15/22 18:47 Freq: Status: Active Protocol: Document 12/22/22 13:23 LRN (Rec: 12/22/22 15:01 LRN [id number]) Trunk Strength Trunk Manual Muscle Testing Core Stabilization Pt shows good core stability with all LE movements. Hip Strength Hip Manual Muscle Testing Right Comments Generally 5/5 except as indeicated above Left External Rotation 3 Fair Comments Generally 5/5 except as indeicated above PT-OP-Q Treatments Start: 12/15/22 18:47 Freq: Status: Active Protocol: Document 01/29/23 13:26 LRN (Rec: 01/29/23 14:18 LRN [id number]) Therapeutic Exercises Supine Exercises PF isolated contractions Supine Exercise Name PF Isolated contraction training Reps/Minutes 10x Long holds & Quick Contractions with double rest time after contraction Comments MUCH Phys & V cuing w/ contraction & relaxation awareness. PF strengthening with VEMG Supine Exercise Name PF strengthening with Vag electrode (see neuro re-ed) Sidelying Exercises PF w/reverse clam Sidelying Exercise Name PF/Reverse clam f/b 10x Clamshell w/o PF Side bilateral Reps/Minutes 6x Comments Extra time to perform proper leg mvmt & coord w/PF contraction & relaxation Sitting Exercises Sit<>supine w/PF/breath Sitting Exercise Name Reviewed Reps/Minutes 1' Manual Therapy Treatment Soft Tissue Mobilization Lower abdomen Body Location Bladder, Uterus Region Mobilization Type Sustained Pressure Intensity/Depth Moderate Body Position Hooklying Comments Bladder L rot, SB; Uterus SB, lift Neuro Re-Education Treatment Other Activities PF re-educ w/EStim Details PF contraction awareness/ strengthening w/EStim for Reps/Duration 10' Comments EStim: 10 on:10 off; intensity 12, 50pps. Extra time taken to determine max tolerance for PF contraction awareness training , working with ES to get a PF contraction. Self-Care/Home Management Treatment Education Patient Education Home Exercise Program Activities Self-Care/Home Management Activities Issued & reviewed HEP: Reverse Clamshell and only L side Clamshell during rest phase. PT-OP-T Assessment and Plan Start: 12/15/22 18:47 Freq: Status: Active Protocol: Document 01/29/23 13:26 LRN (Rec: 01/29/23 14:18 LRN [id number]) Physical Therapy Assessment Goals Three Impairment Pt uses substitute muscles to perform a PF contraction Short Term Goal (STG) Pt will be aware of the sensation of a proper PF contraction. 01/29/23: Pt edudcated in proper PF contraction with use of vaginal EStim. Pt able to do a PF contraction in isolation of substitute ms. STG Duration 02/05/23 (01/29/23: MET GOAL) Electrician Front Goal (LTG) Pt will be able to perform a PF contraction in isolation of substitute muscles (gluteals, hip AD's and TA). 01/11/23: Educated pt in PF contraction in isolation with self assessment of self phys cuing (hands on abdominals/ gluts). 01/22/23: Pt able to perform PF contraction in isolation of substitute ms if she does without concentrating on breathing, but does counting of hold time. LTG Duration 03/22/23 (01/22/23 MET GOAL ) Two Impairment Decreased Pelvic Floor/TA strength. Short Term Goal (STG) Pt will demonstrate proper core pressure management with PF/TA strengthening. 01/29/23: Pt able to due with reminder and cuing. STG Duration 02/05/23 progressing 01/29/23 Long-Term Goal (LTG) Improve PF strength so that pt can contract the PF for 10 secs prior to fatigue and be able to avoid PF surgery. LTG Duration 03/22/23 One Impairment Lacks appropriates self care HEP. Short Term Goal (STG) Pt educated in proper transfers to lessen core abdominal pressure. (01/22/23: MET GOAL) STG Duration 02/05/23 (01/22/23: MET GOAL) Electrician Front Goal (LTG) Pt will be independent in a self care HEP for PF strengthening. HEP: I/S in PF contraction with Ball Squeeze & BKFO agst TBand (lev2). 01/22/23: HEP: Standing PF contraction in standing forward bend Hamstring stretch position. 01/29/23: Reverse Clamshell and during resting-clamshell on L side. LTG Duration 03/22/23 progressed 01/22/23 Assessment Summary Assessment Pt with grade 2 rectocele and uterocele grade 2, and appears to have a drop in her uterus with palpation at 2nd knuckle depth. Pt able to do PF contraction in isolation of substitute muscles. Good tolerance for EStim with improved awareness of PF contraction sensation. Pt given cuing for breathing w/ transfers. Physical Therapy Plan Frequency and Duration Frequency of Treatment 1x/Week Plan of Care Start Date 12/22/22 Plan of Care End Date 03/22/23 Next Visit Focus/Plan Next Note Type Treatment Note Next Visit Plan Estim for PF contraction awareness training. Review/monitor: breathing with transfer for proper core pressure management, and body mechanics. Manual: Abdominal MFR/STM - uterus/bladder lift EX: Progress PF(lat méndez, anter)/hip (L ER) strengthening, improve hip mobility, Manual: improve abdominal soft tissue (bladder) mobility.
--- NOTE | 2023-02-09 15:56 | PT.OTN ---
Current Diagnoses Rectocele (02/09/23) Physical Therapy Treatment Note PT-OP-A Visit Information Start: 12/15/22 18:47 Freq: Status: Active Protocol: Document 02/09/23 15:07 LRN (Rec: 02/09/23 15:55 LRN [id number]) Out-Patient Physical Therapy Visit Information Visit Information Visit Type Treatment Note Visit Start Time 15:07 Visit Stop Time 15:45 Total Visit Minutes 38 Visit Number 12/14 Evaluation Information Evaluation Date 12/22/22 Precautions Precautions PMH per pt and intake form: Bartholin Gland removed-scar tissue, ovariectomy, Skull fracture - age 2. PT-OP-B Current Condition Start: 12/15/22 18:47 Freq: Status: Active Protocol: Document 12/22/22 13:23 LRN (Rec: 12/22/22 15:01 LRN [id number]) Current Condition History of Current Condition Onset Date 3-4 yrs ago History of Current Condition Pt reports having 1981 had 4 deg perineal tear, with forceps used during first preganancey. 2nd chld was delivered standing up. 3-4 yrs ago started to feel a bulge in perineum and discovered herniated rectocele . Moved to [facility] 2.[address] Segura and was given options of care. Pt finally went in to get option because could feel prolapse with walking. Saw Dr Janet Myers and was given option of pessary, PT or surgery. She started PT with Lena Brady, PT and was given Kegel ex's, breathing, not lifting, body work, and education for 5 session. Pt choosing to continue therapy at due to other PT is not under her insurance. Pt wants to see what other kinds of therapy is available. Future Testing and Treatments Planned January 04, 2023 Teleconference with surgeon through Medicine, to schedule an appt to look at kidney, ureter, and bladder. Developmental History Developmental History Childbirths 1980, and 1982. Vaginal deliveries, 1st delivery 4th deg perineal tear , with forceps used. Cyst on ovary with 2nd child and 2 months after bifth had R ovarianectomy. Pt reports she was very active after having her children. Treatment Goals Patient/Caregiver Goals Pt wants to improve as much as she can through education and learning of what she can so she is can avoid surgery. Strengthen the PF muscles and alleviate the pressure on her herniated rectocele. Educated on a HEP. 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 Current Functional Impairments (Reported) Functional Limitations- Recreation/ Intermediate and advanced Hobbies Pilates 2x/week. Has grandchildren that she was lifting. New grandchild coming. Personal Factors Other Personal Factors That May Effect Pt lives on [place] and is Therapy/Recovery expecting a new grandchild end of Jun 2023. PT-OP-C Subjective Start: 12/15/22 18:47 Freq: Status: Active Protocol: Document 02/09/23 15:07 LRN (Rec: 02/09/23 15:55 LRN [id number]) OP-PT Subjective Patient Comments Patient Comments Doing everything and feels she can manage things and it feels a prolapse and does relaxation ex's to handle it. PT-OP-I Pelvic Floor Start: 12/15/22 18:47 Freq: Status: Active Protocol: Document 01/11/23 12:32 LRN (Rec: 01/11/23 15:39 LRN [id number]) Pelvic Floor Assessment Pelvic Clock Pelvic Clock 12-3 Atrophy Pelvic Clock 3-6 Atrophy Pelvic Clock 6-9 Atrophy Pelvic Clock 9-12 Atrophy Prolapse Urethrocele Grade 2 Rectocele Grade 2 Prolapse Comments Uterine Prolapse, able to palpate end of uterus at 2nd knuckle depth. SEMG (uV) Baseline 1.3 Quick Contraction 4.6 10 Second Contraction 4.2 Recruitment Pattern Good Relaxation Good Holding Poor/Slow Stability of Hold Poor/Slow SEMG Stability of Rest Good Contraction Ability Manual Muscle Testing Left 1 Manual Muscle Testing Right 1 Manual Muscle Testing Anterior 1 Manual Muscle Testing Posterior 0 Muscle Endurance (Seconds) 3 PT-OP-J Posture/Palpation/Skin Start: 12/15/22 18:47 Freq: Status: Active Protocol: Document 12/22/22 13:23 LRN (Rec: 12/22/22 15:01 LRN [id number]) Posture Evaluation Position Standing T-Spine Posture Neutral L-Spine Posture Neutral Shoulder Posture (L) Elevated Scapula Posture (L) Neutral,(R) Neutral,(L) Winged,(R) Winged Arm Posture (L) Internally Rotated,(R) Internally Rotated Pelvis Posture Anteriorly Tilted,(R) Iliac Crest Superior Comments Posture Comments Mild anterior tilt of pelvis. Mild>moderate C-curve of upper thoracic spine with apex on the Left. PT-OP-K Range of Motion Start: 12/15/22 18:47 Freq: Status: Active Protocol: Document 12/22/22 13:23 LRN (Rec: 12/22/22 15:01 LRN [id number]) Lumbar Spine Range of Motion Lumbar Spine Active Degrees Testing Position Standing Flexion 10 Extension 15 Rotation Left 45 Rotation Right 40 Lateral Flexion Left 5 Lateral Flexion Right 10 Comments Flexion is 100 deg?s with 90 deg?s hip flexion, Trunk extension is 15 deg?s with 10 deg?s hip extension. Hip Goniometric Range of Motion Hip Right Passive Testing Position Supine Internal Rotation 35 External Rotation 60 Left Passive Testing Position Supine Internal Rotation 40 External Rotation 55 PT-OP-M Strength Start: 12/15/22 18:47 Freq: Status: Active Protocol: Document 12/22/22 13:23 LRN (Rec: 12/22/22 15:01 LRN [id number]) Trunk Strength Trunk Manual Muscle Testing Core Stabilization Pt shows good core stability with all LE movements. Hip Strength Hip Manual Muscle Testing Right Comments Generally 5/5 except as indeicated above Left External Rotation 3 Fair Comments Generally 5/5 except as indeicated above PT-OP-Q Treatments Start: 12/15/22 18:47 Freq: Status: Active Protocol: Document 02/09/23 15:07 LRN (Rec: 02/09/23 15:55 LRN [id number]) Therapeutic Exercises Prone Exercises POH stretch Prone Exercise Name Prone on Hands stretch Reps/Minutes x 1 Comments Hands began to go numb. SHIVANI stretch Prone Exercise Name SHIVANI stretch Reps/Minutes 1' x 2 Sidelying Exercises PF w/reverse clam Sidelying Exercise Name PF/Reverse clam f/b 10x Clamshell w/o PF Side bilateral Equipment Used TB: lev 1 at ankle, Lev 2 at knees Reps/Minutes 5x reverse clam, 10x clam - 2 sets w/and w/o TB, 3rd set L clam Sitting Exercises Sit<>stand w/PF/breath Sitting Exercise Name Sit<>stand w/PF/breath Reps/Minutes 3x Comments v cuing needed. Sit<>supine w/PF/breath Sitting Exercise Name Sit<>supine w/PF ></breath coordination Reps/Minutes 2x Comments Phys & v cuing needed. Manual Therapy Treatment Soft Tissue Mobilization Lower abdomen Body Location Bladder, Uterus Region Mobilization Type Sustained Pressure Intensity/Depth Moderate Body Position Hooklying Comments Bladder L rot, SB; Uterus SB, lift PT-OP-T Assessment and Plan Start: 12/15/22 18:47 Freq: Status: Active Protocol: Document 02/09/23 15:07 LRN (Rec: 02/09/23 15:55 LRN [id number]) Physical Therapy Assessment Goals Three Impairment Pt uses substitute muscles to perform a PF contraction Short Term Goal (STG) Pt will be aware of the sensation of a proper PF contraction. 01/29/23: Pt edudcated in proper PF contraction with use of vaginal EStim. Pt able to do a PF contraction in isolation of substitute ms. STG Duration 02/05/23 (01/29/23: MET GOAL) Correction Goal (LTG) Pt will be able to perform a PF contraction in isolation of substitute muscles (gluteals, hip AD's and TA). 01/11/23: Educated pt in PF contraction in isolation with self assessment of self phys cuing (hands on abdominals/ gluts). 01/22/23: Pt able to perform PF contraction in isolation of substitute ms if she does without concentrating on breathing, but does counting of hold time. LTG Duration 03/22/23 (01/22/23 MET GOAL ) Two Impairment Decreased Pelvic Floor/TA strength. Short Term Goal (STG) Pt will demonstrate proper core pressure management with PF/TA strengthening. 01/29/23: Pt able to due with reminder and cuing. 02/09/23: Pt states she does proper breathing and doing more with daily actitivities, and was able to demonstrate proper breathing with transfers. STG Duration 02/05/23 (02/09/23: MET GOAL ) Correction Goal (LTG) Improve PF strength so that pt can contract the PF for 10 secs prior to fatigue and be able to avoid PF surgery. LTG Duration 03/22/23 One Impairment Lacks appropriates self care HEP. Short Term Goal (STG) Pt educated in proper transfers to lessen core abdominal pressure. (01/22/23: MET GOAL) STG Duration 02/05/23 (01/22/23: MET GOAL) Substation Operator Apprentice Goal (LTG) Pt will be independent in a self care HEP for PF strengthening. HEP: I/S in PF contraction with Ball Squeeze & BKFO agst TBand (lev2). 01/22/23: HEP: Standing PF contraction in standing forward bend Hamstring stretch position. 01/29/23: Reverse Clamshell and during resting-clamshell on L side. LTG Duration 03/22/23 progressed 01/22/23 Assessment Summary Assessment Pt with grade 2 rectocele and uterocele grade 2, and has a drop in her uterus location with palpation at 2nd knuckle depth. Pt holds rectus tight and appears guarded with abdominal mobs. Pt progressing well and is expected to complete rehab quicker than expected. Physical Therapy Plan Frequency and Duration Frequency of Treatment 1x/Week Plan of Care Start Date 12/22/22 Plan of Care End Date 03/22/23 Next Visit Focus/Plan Next Note Type Treatment Note Next Visit Plan Recheck L Hip ER strength and if equal pt to do Clamshell bilaterally. Recheck hip mobility for symmetry. Add PF strengthening on pillows/wedge. Estim for PF contraction awareness training/ strengthening. Assess prolapse of rectocele and end of uterus (proplase feeling with walking?). EX: Progress PF(lat méndez, anter)/hip (L ER) strengthening, improve hip mobility, Manual: Abdominal MFR/STM - uterus region/bladder lift to improve mobility (bladder).
--- NOTE | 2023-02-16 14:40 | PT.OTN ---
Current Diagnoses Rectocele (02/16/23) Physical Therapy Treatment Note PT-OP-A Visit Information Start: 12/15/22 18:47 Freq: Status: Active Protocol: Document 02/16/23 12:27 LRN (Rec: 02/16/23 13:19 LRN [id number]) Out-Patient Physical Therapy Visit Information Visit Information Visit Type Treatment Note Visit Start Time 12:34 Visit Stop Time 13:14 Total Visit Minutes 40 Visit Number 01/13 Evaluation Information Evaluation Date 12/22/22 Precautions Precautions PMH per pt and intake form: Bartholin Gland removed-scar tissue, ovariectomy, Skull fracture - age 2. PT-OP-B Current Condition Start: 12/15/22 18:47 Freq: Status: Active Protocol: Document 12/22/22 13:23 LRN (Rec: 12/22/22 15:01 LRN [id number]) Current Condition History of Current Condition Onset Date 3-4 yrs ago History of Current Condition Pt reports having 1981 had 4 deg perineal tear, with forceps used during first preganancey. 2nd chld was delivered standing up. 3-4 yrs ago started to feel a bulge in perineum and discovered herniated rectocele . Moved to [facility] 2.[address] Segura and was given options of care. Pt finally went in to get option because could feel prolapse with walking. Saw Dr Janet Myers and was given option of pessary, PT or surgery. She started PT with Lena Brady, PT and was given Kegel ex's, breathing, not lifting, body work, and education for 5 session. Pt choosing to continue therapy at due to other PT is not under her insurance. Pt wants to see what other kinds of therapy is available. Future Testing and Treatments Planned January 04, 2023 Teleconference with surgeon through Medicine, to schedule an appt to look at kidney, ureter, and bladder. Developmental History Developmental History Childbirths 1980, and 1982. Vaginal deliveries, 1st delivery 4th deg perineal tear , with forceps used. Cyst on ovary with 2nd child and 2 months after bifth had R ovarianectomy. Pt reports she was very active after having her children. Treatment Goals Patient/Caregiver Goals Pt wants to improve as much as she can through education and learning of what she can so she is can avoid surgery. Strengthen the PF muscles and alleviate the pressure on her herniated rectocele. Educated on a HEP. 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 Current Functional Impairments (Reported) Functional Limitations- Recreation/ Intermediate and advanced Hobbies Pilates 2x/week. Has grandchildren that she was lifting. New grandchild coming. Personal Factors Other Personal Factors That May Effect Pt lives on [place] and is Therapy/Recovery expecting a new grandchild end of Jun 2023. PT-OP-C Subjective Start: 12/15/22 18:47 Freq: Status: Active Protocol: Document 02/16/23 12:27 LRN (Rec: 02/16/23 13:19 LRN [id number]) OP-PT Subjective Patient Comments Patient Comments Doesn't have the same feeling of prolapse, maybe slightly. Has if does something wrong ( lifting). PT-OP-I Pelvic Floor Start: 12/15/22 18:47 Freq: Status: Active Protocol: Document 02/16/23 12:27 LRN (Rec: 02/16/23 13:19 LRN [id number]) Pelvic Floor Assessment SEMG (uV) Baseline 0.2 10 Second Contraction 5.4 Recruitment Pattern Good Relaxation Good Holding Good Stability of Hold Fair SEMG Stability of Rest Good Comments Pelvic Floor Comments Pt needed cuing to slowly perform the PF contraction and for relaxation. Pt anticipated contracions and rest. PT-OP-J Posture/Palpation/Skin Start: 12/15/22 18:47 Freq: Status: Active Protocol: Document 12/22/22 13:23 LRN (Rec: 12/22/22 15:01 LRN [id number]) Posture Evaluation Position Standing T-Spine Posture Neutral L-Spine Posture Neutral Shoulder Posture (L) Elevated Scapula Posture (L) Neutral,(R) Neutral,(L) Winged,(R) Winged Arm Posture (L) Internally Rotated,(R) Internally Rotated Pelvis Posture Anteriorly Tilted,(R) Iliac Crest Superior Comments Posture Comments Mild anterior tilt of pelvis. Mild>moderate C-curve of upper thoracic spine with apex on the Left. PT-OP-K Range of Motion Start: 12/15/22 18:47 Freq: Status: Active Protocol: Document 02/16/23 12:27 LRN (Rec: 02/16/23 13:19 LRN [id number]) Hip Goniometric Range of Motion Hip Right Passive Testing Position Supine Internal Rotation 35 External Rotation 75 Left Passive Testing Position Supine Internal Rotation 35 External Rotation 70 PT-OP-M Strength Start: 12/15/22 18:47 Freq: Status: Active Protocol: Document 02/16/23 12:27 LRN (Rec: 02/16/23 13:19 LRN [id number]) Hip Strength Hip Manual Muscle Testing Right Comments Generally 5/5 except as indeicated above Left Comments Generally 5/5 except as indicated above PT-OP-Q Treatments Start: 12/15/22 18:47 Freq: Status: Active Protocol: Document 02/16/23 12:27 LRN (Rec: 02/16/23 13:19 LRN [id number]) Therapeutic Exercises Supine Exercises Passive hip ER/IR stretch Supine Exercise Name Hip ER/IR stretch Side bilateral Reps/Minutes 8' Comments ROM taken Neuro Re-Education Treatment Other Activities PF strengthening w/vaginal electrode Details PF strengthening w/vaginal electrode Reps/Duration 32' Comments PF strength increased. Pt contracted at time and relaxed at time in anticipation of computer directed contraction/ relaxation. PT-OP-T Assessment and Plan Start: 12/15/22 18:47 Freq: Status: Active Protocol: Document 02/16/23 12:27 LRN (Rec: 02/16/23 13:19 LRN [id number]) Physical Therapy Assessment Goals Two Impairment Decreased Pelvic Floor/TA strength. Short Term Goal (STG) Pt will demonstrate proper core pressure management with PF/TA strengthening. 01/29/23: Pt able to due with reminder and cuing. 02/09/23: Pt states she does proper breathing and doing more with daily actitivities, and was able to demonstrate proper breathing with transfers. STG Duration 02/05/23 (02/09/23: MET GOAL ) Cnc Lathe Programmer Goal (LTG) Improve PF strength so that pt can contract the PF for 10 secs prior to fatigue and be able to avoid PF surgery. 02/16/23: Pt able to hold PF contraction 10 secs with good stability and good resting tone. LTG Duration 03/22/23 (02/16/23: MET GOAL ) One Impairment Lacks appropriates self care HEP. Short Term Goal (STG) Pt educated in proper transfers to lessen core abdominal pressure. (01/22/23: MET GOAL) STG Duration 02/05/23 (01/22/23: MET GOAL) Residential Goal (LTG) Pt will be independent in a self care HEP for PF strengthening. HEP: I/S in PF contraction with Ball Squeeze & BKFO agst TBand (lev2). 01/22/23: HEP: Standing PF contraction in standing forward bend Hamstring stretch position. 01/29/23: Reverse Clamshell and during resting-clamshell on L side. LTG Duration 03/22/23 progressed 01/22/23 Assessment Summary Assessment Pt with grade 2 rectocele and uterocele grade 2, and has a drop in her uterus location with palpation at 2nd knuckle depth. Pt hip mobility has improved in symmetry with mild slick tightness of hip IR's, normal mobility of ER's. PF contractions long hold shows improved strength of contraction (10 reps: 5.4 uV's , was 4.2uV's) and low resting tone (10 reps: 0.2uV's, was 1.4 uV's). Physical Therapy Plan Frequency and Duration Frequency of Treatment 1x/Week Plan of Care Start Date 12/22/22 Plan of Care End Date 03/22/23 Next Visit Focus/Plan Next Note Type Discharge Summary Next Visit Plan Assess prolapse of rectocele and end of uterus. If complete HEP, then DC to HEP. Add to HEP: Clamshell bilaterally. Add to HEP: PF strengthening on pillows/wedge. EX: Progress PF (lat méndez, anter)/hip (L ER) strengthening, improve hip mobility, Manual: Abdominal MFR/STM - uterus region/bladder lift to improve mobility (bladder).
--- NOTE | 2023-02-26 16:47 | PT.OTN ---
Current Diagnoses Rectocele (02/26/23) Physical Therapy Treatment Note PT-OP-A Visit Information Start: 12/15/22 18:47 Freq: Status: Active Protocol: Document 02/26/23 13:31 LRN (Rec: 02/26/23 14:13 LRN [id number]) Out-Patient Physical Therapy Visit Information Visit Information Visit Type Treatment Note Visit Start Time 13:31 Visit Stop Time 14:09 Total Visit Minutes 38 Visit Number 02/13 Evaluation Information Evaluation Date 12/22/22 Precautions Precautions PMH per pt and intake form: Bartholin Gland removed-scar tissue, ovariectomy, Skull fracture - age 2. PT-OP-B Current Condition Start: 12/15/22 18:47 Freq: Status: Active Protocol: Document 12/22/22 13:23 LRN (Rec: 12/22/22 15:01 LRN [id number]) Current Condition History of Current Condition Onset Date 3-4 yrs ago History of Current Condition Pt reports having 1981 had 4 deg perineal tear, with forceps used during first preganancey. 2nd chld was delivered standing up. 3-4 yrs ago started to feel a bulge in perineum and discovered herniated rectocele . Moved to [facility] 2.[address] Segura and was given options of care. Pt finally went in to get option because could feel prolapse with walking. Saw Dr Janet Myers and was given option of pessary, PT or surgery. She started PT with Lena Brady, PT and was given Kegel ex's, breathing, not lifting, body work, and education for 5 session. Pt choosing to continue therapy at due to other PT is not under her insurance. Pt wants to see what other kinds of therapy is available. Future Testing and Treatments Planned January 04, 2023 Teleconference with surgeon through Medicine, to schedule an appt to look at kidney, ureter, and bladder. Developmental History Developmental History Childbirths 1980, and 1982. Vaginal deliveries, 1st delivery 4th deg perineal tear , with forceps used. Cyst on ovary with 2nd child and 2 months after bifth had R ovarianectomy. Pt reports she was very active after having her children. Treatment Goals Patient/Caregiver Goals Pt wants to improve as much as she can through education and learning of what she can so she is can avoid surgery. Strengthen the PF muscles and alleviate the pressure on her herniated rectocele. Educated on a HEP. 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 Current Functional Impairments (Reported) Functional Limitations- Recreation/ Intermediate and advanced Hobbies Pilates 2x/week. Has grandchildren that she was lifting. New grandchild coming. Personal Factors Other Personal Factors That May Effect [place] and is Therapy/Recovery expecting a new grandchild end of Jun 2023. PT-OP-C Subjective Start: 12/15/22 18:47 Freq: Status: Active Protocol: Document 02/26/23 13:31 LRN (Rec: 02/26/23 14:13 LRN [id number]) OP-PT Subjective Patient Comments Patient Comments Able to gardening as was able to do w/o feeling of prolapse. Some nights do not feel the prolapse. Hasn't had nighttime neck ms cramps since last visit. Patient Questionnaires Pelvic Pain and Urgency/Frequency Patient Symptom Scale Pelvic Pain Score 5 PT-OP-I Pelvic Floor Start: 12/15/22 18:47 Freq: Status: Active Protocol: Document 02/16/23 12:27 LRN (Rec: 02/16/23 13:19 LRN [id number]) Pelvic Floor Assessment SEMG (uV) Baseline 0.2 10 Second Contraction 5.4 Recruitment Pattern Good Relaxation Good Holding Good Stability of Hold Fair SEMG Stability of Rest Good Comments Pelvic Floor Comments Pt needed cuing to slowly perform the PF contraction and for relaxation. Pt anticipated contracions and rest. PT-OP-J Posture/Palpation/Skin Start: 12/15/22 18:47 Freq: Status: Active Protocol: Document 12/22/22 13:23 LRN (Rec: 12/22/22 15:01 LRN [id number]) Posture Evaluation Position Standing T-Spine Posture Neutral L-Spine Posture Neutral Shoulder Posture (L) Elevated Scapula Posture (L) Neutral,(R) Neutral,(L) Winged,(R) Winged Arm Posture (L) Internally Rotated,(R) Internally Rotated Pelvis Posture Anteriorly Tilted,(R) Iliac Crest Superior Comments Posture Comments Mild anterior tilt of pelvis. Mild>moderate C-curve of upper thoracic spine with apex on the Left. PT-OP-K Range of Motion Start: 12/15/22 18:47 Freq: Status: Active Protocol: Document 02/16/23 12:27 LRN (Rec: 02/16/23 13:19 LRN [id number]) Hip Goniometric Range of Motion Hip Right Passive Testing Position Supine Internal Rotation 35 External Rotation 75 Left Passive Testing Position Supine Internal Rotation 35 External Rotation 70 PT-OP-M Strength Start: 12/15/22 18:47 Freq: Status: Active Protocol: Document 02/16/23 12:27 LRN (Rec: 02/16/23 13:19 LRN [id number]) Hip Strength Hip Manual Muscle Testing Right Comments Generally 5/5 except as indeicated above Left Comments Generally 5/5 except as indicated above PT-OP-Q Treatments Start: 12/15/22 18:47 Freq: Status: Active Protocol: Document 02/26/23 13:31 LRN (Rec: 02/26/23 14:13 LRN [id number]) Therapeutic Exercises Supine Exercises PF/LE roll in-out/hip AB/ball squeeze Comments Strength assessed Passive hip ER/IR stretch Supine Exercise Name PF/LE roll in-out/hip AB/Ball squeeze Equipment Used Lev 3 TB, ball PF Long Holds Supine Exercise Name PF Long holds with double rest times Reps/Minutes 3' Comments Strength assessed PF Quick Flicks Supine Exercise Name PF Quick Flicks with double rest times (breath) Reps/Minutes 2' Sitting Exercises PF/LE roll in-out/hip AB/Ball squeeze Sitting Exercise Name PF/LE roll in-out/hip AB/Ball squeeze Side bilateral Equipment Used Lev 3 TB, ball PF/LE roll in-out/hip AB Sitting Exercise Name PF/LE roll in-out/hip AB Side bilateral PF/LE roll in-out Sitting Exercise Name PF/LE roll in-out Side bilateral Equipment Used Lev 3 TB, ball Self-Care/Home Management Treatment Education Other Education Educated pt in self abdominal STM for bladder lift. Activities Self-Care/Home Management Activities Issued & reviewed HEP: sitting clamshell. PT-OP-T Assessment and Plan Start: 12/15/22 18:47 Freq: Status: Active Protocol: Document 02/26/23 13:31 LRN (Rec: 02/26/23 14:13 LRN [id number]) Physical Therapy Assessment Goals Three Impairment Pt uses substitute muscles to perform a PF contraction Short Term Goal (STG) Pt will be aware of the sensation of a proper PF contraction. 01/29/23: Pt edudcated in proper PF contraction with use of vaginal EStim. Pt able to do a PF contraction in isolation of substitute ms. STG Duration 02/05/23 (01/29/23: MET GOAL) Residential Goal (LTG) Pt will be able to perform a PF contraction in isolation of substitute muscles (gluteals, hip AD's and TA). 01/11/23: Educated pt in PF contraction in isolation with self assessment of self phys cuing (hands on abdominals/ gluts). 01/22/23: Pt able to perform PF contraction in isolation of substitute ms if she does without concentrating on breathing, but does counting of hold time. LTG Duration 03/22/23 (01/22/23 MET GOAL ) Two Impairment Decreased Pelvic Floor/TA strength. Short Term Goal (STG) Pt will demonstrate proper core pressure management with PF/TA strengthening. 01/29/23: Pt able to due with reminder and cuing. 02/09/23: Pt states she does proper breathing and doing more with daily actitivities, and was able to demonstrate proper breathing with transfers. STG Duration 02/05/23 (02/09/23: MET GOAL ) Hand Bobbin Cleaner Goal (LTG) Improve PF strength so that pt can contract the PF for 10 secs prior to fatigue and be able to avoid PF surgery. 02/16/23: Pt able to hold PF contraction 10 secs with good stability and good resting tone. LTG Duration 03/22/23 (02/16/23: MET GOAL ) One Impairment Lacks appropriates self care HEP. Short Term Goal (STG) Pt educated in proper transfers to lessen core abdominal pressure. (01/22/23: MET GOAL) STG Duration 02/05/23 (01/22/23: MET GOAL) Hand Bobbin Cleaner Goal (LTG) Pt will be independent in a self care HEP for PF strengthening. HEP: I/S in PF contraction with Ball Squeeze & BKFO agst TBand (lev2). 01/22/23: HEP: Standing PF contraction in standing forward bend Hamstring stretch position. 01/29/23: Reverse Clamshell and during resting-clamshell on L side. 02/26/23: HEP: sitting clamshell. LTG Duration 03/22/23 (02/26/23: MET GOAL ) Assessment Summary Assessment The pt has overall has had good symptom improvement with lessening of her feeling of prolapse and greater ease with performing bowel movements. Her rectocele remains present as expected and I was not able to feel a restriction at the end of vaginal canal (no drop in uterus location). Pt is able to perform ex's with proper coordinating breath work and she appears to have a good understanding of ex's and is able to perform ex's on pillows/wedge while coordinating good breathing patterns. The pt feels confident in her ability to limit the feeling of prolapse with her independent HEP; therefore the pt will be discharged today to her HEP. Physical Therapy Plan Discharge Physical Therapy Discharge Reasons Goals Met Discharge Comments The pt has palpable rectocele when assessed vaginally, but she has no perception of prolapse or dropping out of her pelvic floor most of the time. She feels confident in managing her prolpase. Thank you for your referral.
--- OUTSIDE RECORDS SUMMARY | 2023-06-01 15:12 | XMS_ITS | Referral Summary ---
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 Name Role Phone Unavailable Primary Care Provider Unavailabl e Reason for Referral * Complex Imaging (Routine) - Authorized Specialty Diagnoses / Procedures Referred By Contac t Referred To Contact Radiology Med / Radiology Diagnoses Other microscopic hematuria Procedures CT IVP DE CT ABD&PELV 1+ SECTION/REGNS DE 3D RENDERING W/POSTPROCESS Diego Myers MD [address] [place] [address] [address] [place] [address] [facility] [address] [facility], [address] [place] [address] Referral ID Status Reason Start Date Expiration Date V isits Requested Visits Authorized [id number] Authorized 11/01/2022 11/01/2023 1 1 * Physical/ Occ/ Speech Therapy (Routine) - In Process Specialty Diagnoses / Procedures Referred By Contac t Referred To Contact Diagnoses Rectocele Diego Myers MD [address] [place] [address], [facility] [address] [place] [address] [facility] [address] [place] [id number] Referral ID Status Reason Start Date Expiration Date Visits Requested Visits Authorized [id number] In Process Physical Therapy 10/27/2022 10/27/2023 1 1 Scheduling Instructions Please be aware that while I, as your health care provider, have identified this referral as medically indicated, I cannot guarantee your insurance plan will cover it. I recommend you contact your insurance carrier to make sure this is a covered service they will pay for. Reason for Visit * Reason Comments Pelvic Organ Prolapse Rectocele consult * Specialty Visit (Routine) - In Process Specialty Diagnoses / Procedures Referred By Eduar ramírez Referred To Contact Urogynecology Diagnoses Rectocele Procedures Eval and Treat Rasheeda Segura MD [address], [address] [place] [address] Diego Myers MD [address] [place] [address] [place] [address] Referral ID Status Reason Start Date Expiration Date V isits Requested Visits Authorized [id number] In Process 08/29/2022 08/29/2023 1 1 Encounter Details Date Type Department Care Team Description 10/27/2022 Office Visit [facility] [address] [place] [id number] Diego Myers MD [address] [place] [phone] Dx: Rectocele (Primary Dx) Allergies Active Allergy Reactions Severity Noted Date Comments Sulfa Antibiotics Skin: Rash 10/27/2022 documented as of this encounter (statuses as of 11/07/2022) Medications Medication Sig Dispensed Refills Start Date End Date Status dicyclomine 20 MG tablet Take 1 tablet (20 mg) by mouth daily as needed. 0 09/27/2022 Active metroNIDAZOLE 0.75 % topical gel at bedtime. 0 Active Fexofenadine HCl (NINA ALLERGY OR) Take by mouth as needed. 0 Active documented as of this encounter (statuses as of 11/07/2022) Active Problems Problem Noted Date Irritable bowel syndrome 09/25/2013 Overview: Last Assessment & Plan: Interval History & Assessment: Symptomatically improved with Bentyl 20 mg with meals p.r.n. Plan: Continue Bentyl. Rosacea 11/10/2009 documented as of this encounter (statuses as of 11/07/2022) Social History Tobacco Use Types Packs/Day Years Used Date Smoking Tobacco: Never Smokeless Tobacco: Never Tobacco Cessation:Counseling Given: Not Answered Alcohol Use Standard Drinks/Week Comments Yes 5 (1 standard drink = 0.6 oz pur e alcohol) Sex Assigned at Date Recorded Not on file documented as of this encounter Last Filed Vital Signs Vital Sign Reading Time Taken Comments Blood Pressure 115/79 10/27/2022 11:16 AM PDT Pulse 62 10/27/2022 11:16 AM PDT Temperature - - Respiratory Rate - - Oxygen Saturation 100% 10/27/2022 11:16 AM PDT Inhaled Oxygen Concentration - - Weight - - Height - - Body Mass Index - - documented in this encounter Progress Notes * Diego Myers MD - 10/27/2022 11:20 AM PDT [facility] Female Pelvic Medicine and Reconstructive Surgery Note to patient: the Cures Act makes medical notes like these available to the patientin the interest of transparency. However, be advised this is a medical document. It is intended as peer to peer communication. It is written in medical language and may contain abbreviations or verbiage that are unfamiliar. It may appear blunt or direct. Medical documents are intended to carry relevant information, facts as evident, and the clinical opinion of the practitioner. Referring MD: Rasheeda Segura MD This patient has been referred by for my opinion on the evaluation and management of a rectocele CHIEF COMPLAINT: I have a rectocele and is it going to get worse History of Present Illness: Adriana is a 72 year old P2 Menopausal x 30 years, with a chief complaintof a rectocele that has been persistent for ~3-4 years. She reports that it is intermittent worse and she would like to understand her options. No prior treatments for prolapse. No urinary incontinence. She worries about leaking at night if she waits too long but states that she does not actually have incontinence. No hematuria, renal calculi, or other urologic issues. Duration of symptoms: 3-4 years Pads per day: occasional pantyliners at night. If I sleep deeply, I might have a little leakage Frequency: Q3 hours Nocturia: wakes 1-2 times per night and voids. It is unclear if her bladder is the cause of her awakening Enuresis: has happened 1 time She reports a slowed stream with sensation of incomplete emptying. Particularly later in the days. Incomplete emptying?: unsure when she has a slow stream How often do you leak urine?: never How much urine do you leak?: none Bladder infections in the past year: none Dietary irritants/Intake: 8 ounces of coffee/tea/caffeinated soda per day 48 ounces of water per day 8 ounces of other fluids per day (gatorade) Bowel/Stooling History: 14 BMs per week Consistency of typical stool: alternating constipation/diarrhea and ho IBS Bowel Incontinence: not a regular problem [employer] History: How many children: 2 Vaginal x 2 with 1st FAVD complicated by a 4th degree laceration Largest: 8# 1 oz PM x 30 years (surgical menopause) Abnormal PAP smears: none Post-menopausal bleeding: none Estrogen use: on HRT until 2 years Sexual Function: Sexually active: Partner with ED, no concerns about sexual activity Marital status: , Bill Past Medical History: IBS Rosacea Past Surgical History: FERNANDO/USO () ELAP/USO (1983) Bartholin cyst excision () ORIF (1950) Tonsillectomy Social History: Tobacco: Former smoker (social in college), alcohol: 5 drinks per week, or drug use: has experimented with medical MJ. No current use. 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 Now cares for grandchildren Do you feel safe at home: no cocners Family History: Breast cancer: Maternal aunt ( in her 50s) Ovarian cancer: MGM Uterine cancer: none Colon cancer: Maternal aunt ( in her 80s) Medications: Outpatient Medications Prior to Visit Medication Sig Dispense Refill ??? dicyclomine 20 MG tablet Take 1 tablet (20 mg) by mouth daily as needed. ??? Fexofenadine HCl (NINA ALLERGY OR) Take by mouth as needed. ??? metroNIDAZOLE 0.75 % topical gel at bedtime. No facility-administered medications prior to visit. Allergies: Sulfa- rash Bananas- respiratory issues EXAMINATION: BP 115/79 Pulse 62 SpO2 100% General: healthy, alert, no distress Neck: negative findings: no asymmetry, masses, or scars Psychologic: Appropriate, Pleasant and Cooperative Neurologic: alert and oriented and normal gait Eyes: Non-injected conjunctiva Cardiovascular: Regular rate and rhythm Respiratory: Clear to auscultation bilaterally Abdominal/GI: Soft, non-tender/non-distended and +bowel sounds Musculoskeletal: No costovertebral tenderness Skin: No rashes/lesions Ext: No edema in the extremities : External genitalia- Grossly normal, NT, no lesions and normal hair pattern Urethra- midline and NT Bladder- NT and No masses or lesions Vagina- No masses or lesions, minimal rugation, mild atrophy Cervix- Surgically absent Uterus- Surgically absent Adnexa- no adnexal masses or tenderness Pelvic Organ Prolapse-Quantification System- Aa -1.5 Ba -1.5 C -4 Gh 3.5 pb 2 tvl 8 Ap +0.5 Bp +0.5 D / Non-indwelling catheter procedure note: Post Void Residual-The patient was asked to void spontaneously and then her urethra was prepped. A 14 Beninese straight catheter was inserted and removed demonstrating a post void residual of 10mL. Thepatient tolerated the procedure well. Cough Stress Test- Negative Levator/kegel strength- 0/5 ASSESSMENT & PLAN: 1) Stage II rectocele predominant, vaginal prolapse -Post void residual obtained today and found to be normal. -Adriana and I reviewed her exam findings,risk factors for prolapse and typical course of the condition. -We reviewed the importance of pelvic floor muscle strengthening and referral to physical therapy was provided -Options for management of prolapse reviewed including: observation with no intervention, pelvic floor muscle strengthening, pessary use and surgery. -With regard to surgical options we discussed walker river tissue vaginal repairs including the 10%, 10-year re-treatment rate. -Adriana would like to begin with PFPT and will return for a pessary trial in the future is symptoms progress 2) Feeling of incomplete bladder emtpying -excellent bladder emptying confirmed by catheterized PVR today. -Will check a UA C&S Follow-up as needed. If for pessary trial, schedule in 40 min appointment Excluding the time spent performing the procedure, I spent more than 45 minutes for the patient's care on the date of the service. Diego Myers MD Division of Urogynecology and Pelvic Reconstructive Surgery Dept. of Obstetrics and Gynecology [facility] 11/01/22 microscopic hematuria noted initial UA. Given this finding, ho tobacco use, and sensation ofincomplete emtpying will obtain cysto and CTIVP documented in this encounter Miscellaneous Notes * Addendum Note - Diego Myers MD - 10/27/2022 11:20 AM PDTAddended by: DIEGO MYERS on: 11/01/2022 04:35 PM Modules accepted: Orders documented in this encounter Plan of Treatment Upcoming Encounters Date Type Specialty Care Team Description 12/01/2022 Appointment Radiology Scheduled Orders Name Type Priority Associated Diagnoses Orde r Schedule CT IVP Imaging Routine Other microscopic hematuria Expected: 11/01/2022 (Approximate), Expires: 12/03/2023 Scheduled Referrals Name Type Priority Associated Diagnoses Orde r Schedule Referral to Pelvic Floor Therapy Referral Routine Rectocele Expected: 10/27/2022, Expires: 10/28/2023 documented as of this encounter Procedures Procedure Name Priority Date/Time Associated Diagnosis Comments URINALYSIS WITH REFLEX CULTURE Routine 10/27/2022 11:55 AM PDT Feeling of incomplete bladder emptying documented in this encounter Results * (ABNORMAL) Urinalysis with Reflex Culture (10/27/2022 11:55 AM PDT) Color, URN Yellow 10/27/2022 2:26 PM PDT [facility] Medicine Clarity, URN Clear 10/27/2022 2:26 PM PDT [facility] Medicine Specific Ephraim, URN 1.021 1.006 - 1.027 g/mL 10/27/2022 2:26 PM PDT [facility] Medicine pH, URN 8.0 5.0 - 8.0 10/27/2022 2:26 PM PDT [facility] Medicine Protein (Alb Semiquant), URN Negative NRN 10/27/2022 2:26 PM PDT [facility] Medicine Glucose Qual, URN Negative NRN 10/27/2022 2:26 PM PDT [facility] Medicine Ketones, URN Negative NRN 10/27/2022 2:26 PM PDT [facility] Medicine Bilirubin (Qual), URN Negative NRN 10/27/2022 2:26 PM PDT [facility] Medicine Occult Blood, URN Negative NRN 10/27/2022 2:26 PM PDT [facility] Medicine Nitrite, URN Negative NRN 10/27/2022 2:26 PM PDT [facility] Medicine Leukocyte Esterase, URN Negative NRN 10/27/2022 2:26 PM PDT [facility] Medicine Urobilinogen, URN 0.1-1.9 URONML {Steve'U } 10/27/2022 2:26 PM PDT [facility] Medicine Comments for Macroscopic, URN None 10/27/2022 2:26 PM PDT [facility] Collection Method Urine 10/27/2022 11:55 AM PDT [facility] WBC, URN 0-5(NEG) Z5NEG /[HPF] 10/27/2022 2:26 PM PDT [facility] Medicine RBC, URN 3-5 (1+)(A) Z2NEG /[HPF] 10/27/2022 2:26 PM PDT [facility] Bacteria, URN Not Seen NOSEEN 10/27/2022 2:26 PM PDT [facility] Medicine Epith Cells_Squamous , URN 0-5(NEG) LT6 /[LPF] 10/27/2022 2:26 PM PDT [facility] Medicine Epith Cells_Renal/Tr ans,URN <3(NEG) LESS3 /[HPF] 10/27/2022 2:26 PM PDT [facility] Medicine Comments For Microscopic, URN None NONE 10/27/2022 2:26 PM PDT [facility] Medicine 1st Extra Urine Hgoue Top Additional collection tube 10/27/2022 11:55 AM PDT [facility] MED[facility] Urine 10/27/2022 11:5 5 AM PDT Diego Myers MD LAB URINE ORDERABLES [facility]INE [address] [place] [address] [facility] Medicine [address] [place] [address] documented in this encounter Visit Diagnoses Diagnosis Rectocele- Primary Feeling of incomplete bladder emptying Incomplete bladder emptying Other microscopic hematuria documented in this encounter documented as of this encounter
== END 2023-02-28 09:24 | disposition home or self-care (01) ==
LOC: PHYS 13:15
PROVIDERS: Family Provider Family Medicine; PCP Family Medicine; Referring Provider Obstetrics & Gynecology; Visit Provider Obstetrics & Gynecology
DX: N81.6 Rectocele (principal)
CPT/HCPCS: 97110; 97112; 97140; 97162; 97535

== ENCOUNTER → 2023-07-17 10:23 | Outpatient (CLI) | payer MEDICARE, OTHER, SELFPAY ==
[2023-07-17 11:22] LABS: Appearance Urine UA CLEAR; Bilirubin Urine UA NEGATIVE (NEGATIVE); Color Urine UA YELLOW; Glucose Urine UA NEGATIVE (Negative); Ketones Urine UA NEGATIVE (NEGATIVE); Leukocyte Esterase Urine UA NEGATIVE (NEGATIVE); Nitrite Urine UA NEGATIVE (Negative); Occult Blood Urine UA NEGATIVE (Negative); Protein Urine UA NEGATIVE (Negative); Specific Gravity Urine UA <=1.005 (1.000-1.035); Urobilinogen Urine UA 0.2 E.U./dL (0.2)
[2023-07-17 11:26] LABS: pH Urine UA 6.5 (4.5-8.0)
[2023-07-17 11:27] LABS: Bacteria Urine None Seen; Culture Indicated Urine Cult Not Indicated; RBC Urine None Seen (0-5/HPF); Squamous Epithelial Cell Urine None Seen (0-5/HPF); WBC Urine None Seen (0-5/HPF)
[2023-07-17 11:54] LABS: Cholesterol 232 mg/dL (140-199); HDL Cholesterol 93 mg/dL (40-60); LDL Cholesterol Calculated 123 mg/dL (<100); Triglycerides 82 mg/dL (35-150)
[2023-07-17 13:06] LABS: Hep C Virus Ab w/Reflex Quant NEGATIVE s/c (NEGATIVE)
== END ==
PROVIDERS: Family Provider Family Medicine; PCP Family Medicine; Referring Provider Family Medicine; Visit Provider Family Medicine
DX: Z13.6 Encounter for screening for cardiovascular disorders (principal); Z11.59 Encounter for screening for other viral diseases; Z12.11 Encounter for screening for malignant neoplasm of colon; R31.9 Hematuria, unspecified
CPT/HCPCS: 36415; 80061; 81001; 86803

== ENCOUNTER → 2023-07-24 10:00 | Outpatient (CLI) | payer MEDICARE, OTHER, SELFPAY ==
[2023-07-26 11:41] LABS: Fecal Immunochemical Test Negative (Negative)
== END ==
PROVIDERS: Family Provider Family Medicine; PCP Family Medicine; Visit Provider Family Medicine
DX: Z11.59 Encounter for screening for other viral diseases (principal); Z12.11 Encounter for screening for malignant neoplasm of colon; Z13.6 Encounter for screening for cardiovascular disorders; R31.9 Hematuria, unspecified
CPT/HCPCS: 82274

== ENCOUNTER → 2024-06-04 14:13 | Outpatient (CLI) | payer MEDICARE, OTHER, SELFPAY ==
[2024-06-04 15:05] LABS: Add Manual Diff / Slide Review NO; Basophils Absolute Auto 0 /uL (0-100); Basophils Percent Auto 1.1 % (0-2); Eosinophils Absolute Auto 300 /uL (0-450); Eosinophils Percent Auto 6.1 % (2-4); Hematocrit 39.9 % (36-46); Hemoglobin 13.4 g/dL (12.0-16.0); Lymphocytes Absolute Auto 1600 /uL (1100-4500); Lymphocytes Percent Auto 35.3 % (25-40); Mean Corpuscular HGB Conc 33.7 % (30-36); Mean Corpuscular Hemoglobin 31.6 PG (26-34); Mean Corpuscular Volume 93.8 fL (80-100); Monocytes Absolute Auto 300 /uL (0-900); Monocytes Percent Auto 6.1 % (3-14); Neutrophils Absolute Auto 2300 /uL (1500-7000); Neutrophils Percent Auto 51.4 % (50-75); Platelet Count 245 X10^3/uL (150-400); Red Blood Cell Count 4.25 X10^6/uL (4.0-5.2); Red Cell Distribution Width 13.4 % (11.6-14.8); White Blood Cell Count 4.5 X10^3/uL (4.5-11.0)
[2024-06-04 15:30] LABS: Alanine Aminotransferase 36 IU/L (<35); Albumin 4.9 g/dL (3.5-5.0); Albumin Globulin Ratio 1.4 (1.0-2.8); Alkaline Phosphatase 74 U/L (38-126); Aspartate Aminotransferase 43 IU/L (14-36); BUN Creatinine Ratio 20.6 (6-22); Bilirubin Total 1.3 mg/dL (0.2-1.3); Blood Urea Nitrogen 13 mg/dL (7-17); Calcium 10.2 mg/dL (8.4-10.2); Carbon Dioxide 29 mmol/L (22-32); Chloride 103 mmol/L (98-107); Cholesterol 288 mg/dL (140-199); Estimated Glomerular Filt Rate > 60 mL/min (>60); Globulin 3.5 g/dL (1.7-4.1); Glucose 95 mg/dL (80-110); HEMOLYSIS < 15 (0-50); Potassium 4.1 mmol/L (3.4-5.1); Sodium 138 mmol/L (137-145); Total Protein 8.4 g/dL (6.3-8.2); Triglycerides 95 mg/dL (35-150)
[2024-06-04 15:41] LABS: HDL Cholesterol 124 mg/dL (40-60); LDL Cholesterol Calculated 145 mg/dL (<100)
[2024-06-04 16:00] LABS: Thyroid Stimulating Hormone 2.42 uIU/mL (0.47-4.68)
== END ==
PROVIDERS: Family Provider Family Medicine; PCP Family Medicine; Referring Provider Family Medicine; Visit Provider Family Medicine
DX: E78.5 Hyperlipidemia, unspecified (principal); Z13.1 Encounter for screening for diabetes mellitus; Z13.0 Encounter for screening for diseases of the blood and blood-forming organs and certain disorders involving the immune mechanism
CPT/HCPCS: 80053; 80061; 84443; 85025

== ENCOUNTER → 2024-06-19 10:15 | Outpatient (CLI) | payer MEDICARE, OTHER, SELFPAY | PROVIDERS: Family Provider Family Medicine; PCP Family Medicine; Visit Provider Family Medicine | DX: Z12.11 Encounter for screening for malignant neoplasm of colon (principal) | CPT/HCPCS: 82274 ==

== ENCOUNTER → 2024-07-21 12:00 | Outpatient (CLI) | payer MEDICARE, OTHER, SELFPAY ==
[2024-07-21 19:11] LABS: Alanine Aminotransferase 24 IU/L (<35); Albumin 4.4 g/dL (3.5-5.0); Albumin Globulin Ratio 1.6 (1.0-2.8); Alkaline Phosphatase 67 U/L (38-126); Aspartate Aminotransferase 33 IU/L (14-36); Bilirubin Unconjugated 0.8 mg/dL (0.0-1.1); Globulin 2.8 g/dL (1.7-4.1); HEMOLYSIS < 15 (0-50); Total Protein 7.2 g/dL (6.3-8.2)
[2024-07-21 19:12] LABS: HEMOLYSIS < 15 (0-50); Iron 109 ug/dL (37-170)
[2024-07-21 19:23] LABS: Percent Iron Saturation 52 % (15-50); Total Iron Binding Capacity 211 ug/dL (265-497); Transferrin 182 mg/dL (206-381)
[2024-07-21 19:46] LABS: Ferritin 64 ng/mL (11-264)
[2024-07-23 00:37] LABS: HBsAg Screen Negative (Negative); Hepatitis A Antibody IgM Negative (Negative); Hepatitis B Core Antibody IgM Negative (Negative); Hepatitis C Antibody Non Reactive (Non Reactive)
[2024-07-23 20:09] LABS: Free Kappa Lt Chains, Serum 15.9 mg/L (3.3-19.4); Free Lambda Lt Chains,Serum 13.8 mg/L (5.7-26.3)
[2024-07-24 12:08] LABS: Immunoglobulin A, Serum 176 mg/dL (64-422); Immunoglobulin G,Serum 1225 mg/dL (586-1602); Immunoglobulin M, Serum 49 mg/dL (26-217)
[2024-07-24 13:36] LABS: Albumin 4.4 g/dL (2.9-4.4); Alpha-1-Globulin 0.2 g/dL (0.0-0.4); Alpha-2-Globulin 0.5 g/dL (0.4-1.0); Gamma Globulin 1.2 g/dL (0.4-1.8); Globulin Total 2.7 g/dL (2.2-3.9); Protein, Total 7.1 g/dL (6.0-8.5)
[2024-07-24 18:36] LABS: ANA Screen, IFA Negative (.)
== END ==
PROVIDERS: Family Provider Family Medicine; PCP Family Medicine; Visit Provider Family Medicine
DX: K75.9 Inflammatory liver disease, unspecified (principal); R74.8 Abnormal levels of other serum enzymes
CPT/HCPCS: 80074; 80076; 82728; 82784; 83540; 83550; 83883; 84155; 84165; 86038; 86334

== ENCOUNTER → 2024-08-17 11:00 | Outpatient (CLI) | payer MEDICARE, OTHER, SELFPAY ==
--- NOTE | 2024-08-17 11:02 | DI.MRI.S_ITS ---
PROCEDURE: MR KNEE LT WO CON INDICATIONS: locking of left knee -- in spite of PT and home exercises, TECHNIQUE: Noncontrast sagittal PD fast spin echo and T2 fast spin echo with fat saturation, sagittal 3-D FLASH with fat saturation; coronal T1 spin echo and PD fast spin echo with fat saturation, and axial PD fast spin echo with fat saturation through the knee. COMPARISON: [facility] ([facility]), CR, XR KNEE LT 3V, 05/07/2024, 14:43. FINDINGS: Image quality: Diagnostic Menisci: Medial: Small horizontal and oblique tear at the inferior surface of the posterior horn. Lateral: Complicated free edge tear with oblique component involving the body and anterior horn. Cruciate ligaments: Intact Medial structures: MCL: Intact Pes anserine tendons: Mild bursal edema Semimembranosus: Mild insertional tendinopathy Lateral structures: LCL: Mild proximal edema Biceps femoris: Mild insertional edema and tendinopathy IT band: Intact Popliteus tendon: Mild insertional tendinopathy and tenosynovitis Anterior structures: Extensor mechanism: No full-thickness defect. Patellar enthesopathy and mild edema. Fat pads: Mild edema in the superolateral corner of Hoffa's fat pad Medial retinaculum: Intact. Trochlea: Unremarkable morphology. Bone and joint: Bones: No acute fracture Cartilage: Moderate thinning of the patellar cartilage. Rqpd-lz-ilgibton heterogeneity and thinning at the lateral and medial compartments also seen. Joint space: Small joint effusion Bravo's cyst: None Soft tissues: No significant vascular or other soft tissue pathology. IMPRESSION: Complicated tear of the lateral meniscus. Small horizontal and oblique tear of the medial meniscal posterior horn. Intact cruciate ligaments. Mild sprain of the proximal LCL. There is also adjacent edema involving the biceps femoris insertion and popliteus tendon. Mild edema in the superolateral corner of Hoffa's fat pad. This is sometimes associated with patellofemoral friction syndrome. Adjacent patellar enthesopathy also seen with mild edema. Wlnr-gu-wkydvdtl arthrosis with moderate thinning of the patellar cartilage and cyon-ad-vpskzpqy heterogeneity and thinning of the other compartments. Mild pes anserine bursal edema and adjacent tendinopathy of the semimembranosus. Small joint effusion Dictated by: Ashkan Estrada M.D. on 08/18/2024 at 14:24 Approved by: Ashkan Estrada M.D. on 08/18/2024 at 14:30
== END ==
PROVIDERS: Family Provider Family Medicine; PCP Family Medicine; Referring Provider Family Medicine; Visit Provider Family Medicine
DX: S83.272A Complex tear of lateral meniscus, current injury, left knee, initial encounter (principal); S83.242A Other tear of medial meniscus, current injury, left knee, initial encounter; S83.422A Sprain of lateral collateral ligament of left knee, initial encounter; M23.92 Unspecified internal derangement of left knee; M17.12 Unilateral primary osteoarthritis, left knee; M25.562 Pain in left knee; M25.462 Effusion, left knee
CPT/HCPCS: 73721

== ENCOUNTER → 2025-03-10 12:03 | Outpatient (CLI) | payer MEDICARE, OTHER, SELFPAY ==
[2025-03-10 19:51] LABS: HEMOLYSIS < 15 (0-50); Iron 120 ug/dL (37-170)
[2025-03-10 19:59] LABS: Alanine Aminotransferase 24 IU/L (<35); Albumin 4.2 g/dL (3.5-5.0); Albumin Globulin Ratio 1.6 (1.0-2.8); Alkaline Phosphatase 76 U/L (38-126); Blood Urea Nitrogen 13 mg/dL (7-17); Calcium 9.3 mg/dL (8.4-10.2); Carbon Dioxide 27 mmol/L (22-32); Chloride 103 mmol/L (98-107); Cholesterol 204 mg/dL (140-199); Estimated Glomerular Filt Rate > 60 mL/min (>60); Globulin 2.6 g/dL (1.7-4.1); Glucose 91 mg/dL (70-99); HDL Cholesterol 90 mg/dL (40-60); HEMOLYSIS 21 (0-50); Potassium 4.5 mmol/L (3.4-5.1); Sodium 137 mmol/L (137-145); Total Protein 6.8 g/dL (6.3-8.2); Triglycerides 58 mg/dL (35-150)
[2025-03-10 20:04] LABS: Percent Iron Saturation 47 % (15-50); Total Iron Binding Capacity 254 ug/dL (265-497); Transferrin 209 mg/dL (206-381)
== END ==
PROVIDERS: Family Provider Family Medicine; PCP Family Medicine; Visit Provider Family Medicine
DX: R74.8 Abnormal levels of other serum enzymes (principal); E78.5 Hyperlipidemia, unspecified
CPT/HCPCS: 80053; 80061; 83540; 83550